=== PATIENT | male | born 1935 | race Caucasian/White ===

== ENCOUNTER 2016-10-29 13:31 | Inpatient (IN) | payer MEDICARE ==
[~2016-10-29] VITALS: Ht 165.1 cm; Wt 75.4 kg
[2016-10-29] MEDS: MEMANTINE 10 MG TABLET. PO SCH ×2 (09:00→21:00)
[~2016-10-29 13:31] MED LIST: ACET325T9 PO; AMIO200T2 PO; ATOR40TA59 PO; DIVA125C PO; ESCITALOPRAM OX10 MG PO; ESOM40CA PO; FURO-69 PO; LEVO88TA4 PO; LISI10TA2 PO; MAG355OR12 PO; MAGN2400 PO; MEMA28CA PO; OLAN5TAB5 PO; OLAN5TAB7 PO; QUET25TA PO; TRAM50TA PO; TRAZ-90 PO
[2016-10-29 14:13] LABS: BASO # 0.1 x10^3/uL (0.0-0.2); BASO % 1 % (0-3); EOS # 0.1 x10^3/uL (0.0-0.7); EOS % 1 % (0-3); HEMATOCRIT 46.1 % (39.0-53.0); HEMOGLOBIN 15.6 g/dL (13.0-17.5); LYMPH # 1.6 x10^3/uL (1.0-4.8); LYMPH % 20 % (24-48); MEAN CORPUSCULAR HEMOGLOBIN 33 pg (25-35); MEAN CORPUSCULAR HGB CONC 34 g/dL (31-37); MEAN CORPUSCULAR VOLUME 97 fL (79-100); MONO % 12 % (0-9); NEUT # 5.2 x10^3uL (1.8-7.7); NEUT % 66 % (31-73); PLATELET COUNT 203 x10^3/uL (140-400); RED BLOOD COUNT 4.73 x10^6/uL (4.30-5.70); RED CELL DISTRIBUTION WIDTH 14.1 % (11.5-14.5); WHITE BLOOD COUNT 7.9 x10^3/uL (4.0-11.0)
[2016-10-29 14:26] LABS: ALBUMIN 3.2 g/dL (3.4-5.0); ALBUMIN/GLOBULIN RATIO 0.7 (1.0-1.7); TOTAL PROTEIN 7.6 g/dL (6.4-8.2)
[2016-10-29 14:27] LABS: CREATININE 1.5 mg/dL (0.7-1.3); GFR 44.7; POTASSIUM 4.7 mmol/L (3.5-5.1); TOTAL BILIRUBIN 0.8 mg/dL (0.2-1.0)
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
[2016-10-29 14:46] LABS: BILIRUBIN,URINE NEG (NEG); CLARITY,URINE CLOUDY; COLOR,URINE AMBER; GLUCOSE,URINE NEG (NEG); NITRITE,URINE NEG (NEG); RBC,URINE TNTC /HPF (0-2); UROBILINOGEN,URINE 2 mg/dL (0.2 mg/dL)
[2016-10-29 14:47] LABS: BACTERIA,URINE 0 /HPF (0-FEW); SQUAMOUS EPITHELIAL CELL,UR OCC /LPF
[2016-10-29 14:49] LABS: VAL ACID 17 mcg/mL (50-100)
--- NOTE | 2016-10-29 15:22 | EKG ---
[address] [address] Test Date: 2016-10-29 Test Time: 14:01:30 Pat Name: MICHELLE CHAMBERLAIN Department: Room: Gender: M Supervisor [employer]: : 1935 Requested By: RHONDA SULLIVAN Order Number: [id number] Reading MD: Serafin Mariano Measurements Intervals [place] Rate: 67 P: TN: QRS: -34 QRSD: 216 T: 146 QT: 502 QTc: 534 Interpretive Statements V-PACED RHYTHM Electronically Signed On 11-07-2016 12:22:58 CDT by Serafin Mariano
[2016-10-29] MEDS ORDERED: GUAI12003 PO (15:30)
[2016-10-29] MEDS ORDERED: BISA10SU2 RC (15:30)
[2016-10-29] MEDS ORDERED: OLAN5TAB5 PO (15:30)
[2016-10-29] MEDS ORDERED: DOCU100C28 PO (15:30)
[2016-10-29 17:53] VITALS: BP 158/82
[2016-10-29] MEDS ORDERED: METHYL SALICYLATE/MENTHOL TOPICAL OINTMENT 29GM TUBE. TP PRN (18:00)
[2016-10-29] MEDS ORDERED: ACETAMINOPHEN 325 MG TABLET PO PRN ×2 (18:00→18:15)
[2016-10-29] MEDS ORDERED: MAG HYDROX/AL HYDROX/SIMETH 30 ML ORAL.SUSP PO PRN (18:00)
[2016-10-29] MEDS ORDERED: NON FORMULARY ITEM (Magnesium Hydroxide (Milk Of Magnesia) 2,400 MG) PO PRN (18:15)
--- NOTE | 2016-10-29 19:54 | PDOC ---
Exam Irving Demential Exam: Irving Note: Please also refer to the separate dictated note~for this date of service dictated separately.~Patient seen individually. Discussed the patient with Nursing staff reviewed the chart.~Reviewed interim history and current functioning. Reviewed vital signs,~Labs/ Radiology~and current medications noted below. Continue current treatment with the changes noted in the dictated addendum note Assessment: Vital Signs: Vital Signs Date Time Temp Pulse Resp B/P (MAP) Pulse Ox O2 Delivery O2 Flow Rate FiO2 10/29/16 17:53 98.4 76 20 158/82 (107) 94 Room Air Labs: Laboratory Tests Test 10/29/16 13:55 10/29/16 14:00 10/29/16 14:15 White Blood Count 7.9 x10^3/uL (4.0-11.0) Red Blood Count 4.73 x10^6/uL (4.30-5.70) Hemoglobin 15.6 g/dL (13.0-17.5) Hematocrit 46.1 % (39.0-53.0) Mean Corpuscular Volume 97 fL (79-100) Mean Corpuscular Hemoglobin 33 pg (25-35) Mean Corpuscular Hemoglobin Concent 34 g/dL (31-37) Red Cell Distribution Width 14.1 % (11.5-14.5) Platelet Count 203 x10^3/uL (140-400) Neutrophils (%) (Auto) 66 % (31-73) Lymphocytes (%) (Auto) 20 % (24-48) L Monocytes (%) (Auto) 12 % (0-9) H Eosinophils (%) (Auto) 1 % (0-3) Basophils (%) (Auto) 1 % (0-3) Neutrophils # (Auto) 5.2 x10^3uL (1.8-7.7) Lymphocytes # (Auto) 1.6 x10^3/uL (1.0-4.8) Monocytes # (Auto) 1.0 x10^3/uL (0.0-1.1) Eosinophils # (Auto) 0.1 x10^3/uL (0.0-0.7) Basophils # (Auto) 0.1 x10^3/uL (0.0-0.2) Sodium Level 144 mmol/L (136-145) Potassium Level 4.7 mmol/L (3.5-5.1) Chloride Level 106 mmol/L (98-107) Carbon Dioxide Level 31 mmol/L (21-32) Anion Gap 7 (6-14) Blood Urea Nitrogen 25 mg/dL (8-26) Creatinine 1.5 mg/dL (0.7-1.3) H Estimated GFR (Cockcroft-Gault) 44.7 BUN/Creatinine Ratio 17 (6-20) Glucose Level 111 mg/dL (70-99) H Calcium Level 9.0 mg/dL (8.5-10.1) Total Bilirubin 0.8 mg/dL (0.2-1.0) Aspartate Amino Transferase (AST) 53 U/L (15-37) H Alanine Aminotransferase (ALT) 22 U/L (16-63) Alkaline Phosphatase 98 U/L (46-116) Total Protein 7.6 g/dL (6.4-8.2) Albumin 3.2 g/dL (3.4-5.0) L Albumin/Globulin Ratio 0.7 (1.0-1.7) L Valproic Acid Level 17 mcg/mL (50-100) L Valproic Acid Last Dose Date 10/29/16 Valproic Acid Last Dose Time 0000 Urine Collection Type Void Urine Color Jeri Urine Clarity Cloudy Urine pH 5.5 Urine Specific [place] 1.025 Urine Protein 30 mg/dl (NEG-TRACE) Urine Glucose (UA) Neg mg/dL (NEG) Urine Ketones (Stick) 15 mg/dL (NEG) Urine Blood Large (NEG) Urine Nitrite Neg (NEG) Urine Bilirubin Neg (NEG) Urine Urobilinogen Dipstick 2 mg/dL (0.2 mg/dL) Urine Leukocyte Esterase Neg (NEG) Urine RBC Tntc /HPF (0-2) Urine WBC 1-4 /HPF (0-4) Urine Squamous Epithelial Cells Occ /LPF Urine Bacteria 0 /HPF (0-FEW) Urine Mucus Slight /LPF Current Medications: Meds: Current Medications Acetaminophen (Tylenol) 650 mg PRN Q6HRS PRN PO PAIN / TEMP; Start 10/29/16 at 18:00 Multi-Ingredient Ointment (Analgesic [place]) 1 jazz PRN QID PRN TP MUSCLE PAIN; Start 10/29/16 at 18:00 Al Hydroxide/Mg Hydroxide (Mylanta Plus Xs) 15 ml PRN AFTMEALHC PRN PO DYSPEPSIA; Start 10/29/16 at 18:00 Magnesium Hydroxide (Milk Of Magnesia) 2,400 mg PRN QHS PRN PO CONSTIPATION; Start 10/29/16 at 18:00 Acetaminophen (Tylenol) 650 mg PRN Q6HRS PRN PO PAIN; Start 10/29/16 at 18:15; Stop 10/29/16 at 18:21; Status DC Amiodarone HCl (Cordarone) 200 mg DAILY PO ; Start 10/30/16 at 09:00 Bisacodyl (Dulcolax Supp) 10 mg PRN DAILY PRN RC CONSTIPATION; Start 10/29/16 at 18:15 Divalproex Sodium (Depakote Sprinkles) 125 mg TID PO ; Start 10/29/16 at 21:00 Docusate Sodium (Colace) 200 mg QHS PO ; Start 10/29/16 at 21:00 Furosemide (Lasix) 40 mg DAILY PO ; Start 10/30/16 at 09:00 Levothyroxine Sodium (Synthroid) 88 mcg DAILYAC PO ; Start 10/30/16 at 07:30 Olanzapine (ZyPREXA ZYDIS) 2.5 mg PRN Q6HRS PRN PO ANXIETY / AGITATION; Start 10/29/16 at 18:15 Olanzapine (ZyPREXA ZYDIS) 5 mg TID PO ; Start 10/29/16 at 21:00 Quetiapine Fumarate (SEROquel) 12.5 mg HS PO ; Start 10/29/16 at 21:00 Trazodone HCl (Desyrel) 50 mg QHS PO ; Start 10/29/16 at 21:00 Atorvastatin Calcium (Lipitor) 40 mg QHS PO ; Start 10/29/16 at 21:00 Escitalopram Oxalate (Lexapro) 15 mg DAILY PO ; Start 10/30/16 at 09:00 Pantoprazole Sodium (Protonix) 40 mg DAILYAC PO ; Start 10/30/16 at 07:30 Guaifenesin (Mucinex Er) 1,200 mg PRN Q12HR PRN PO CHEST CONGESTION; Start 10/29 at 21:00 Non-Formulary Medication 2,400 mg PRN QHS PRN PO CONSTIPATION; Start 10/29/16 at 18:15; Stop 10/29/16 at 18:22; Status DC Memantine (Namenda) 10 mg BID PO ; Start 10/29/16 at 09:00 Active Scripts Active Reported Zyprexa Zydis (Olanzapine) 5 Mg Tab.rapdis 5 Mg PO TID Bisacodyl 10 Mg Supp.rect 10 Mg RC PRN DAILY PRN Mucinex (Guaifenesin) 1,200 Mg Tbmp.12hr 1,200 Mg PO PRN Q12HR PRN Docusate Sodium 100 Mg Capsule 200 Mg PO QHS Zyprexa Zydis (Olanzapine) 5 Mg Tab.rapdis 2.5 Mg PO PRN Q6HRS PRN Escitalopram Oxalate 10 Mg Tablet 15 Mg PO DAILY Quetiapine Fumarate 25 Mg Tablet 12.5 Mg PO HS Milk Of Magnesia (Magnesium Hydroxide) 2,400 Mg/10 Ml Oral.susp 2,400 Mg PO PRN QHS PRN Depakote Sprinkle (Divalproex Sodium) 125 Mg Cap.sprink 125 Mg PO TID Tylenol (Acetaminophen) 325 Mg Tablet 650 Mg PO PRN Q6HRS PRN Nexium Capsule (Esomeprazole Magnesium) 40 Mg Capsule.dr 40 Mg PO DAILY Trazodone Hcl 100 Mg Tablet 50 Mg PO QHS Atorvastatin Calcium 40 Mg Tablet 40 Mg PO QHS Lasix (Furosemide) 20 Mg Tablet 40 Mg PO DAILY Amiodarone Hcl 200 Mg Tablet 200 Mg PO DAILY Levothyroxine Sodium 88 Mcg Tablet 88 Mcg PO DAILYAC Namenda Xr (Memantine Hcl) 28 Mg Cap.spr.24 28 Mg PO DAILY Diagnosis: Problems: (1) Dementia with behavioral disturbance (2) Anxiety disorder (3) Impulse control disorder (4) Dementia in Alzheimer's disease with delusions (5) Dementia in Alzheimer's disease with depression (6) Dementia, vascular, with delusions (7) Dementia, vascular, with depression CAROLA GUILLEN MD Oct 29, 2016 19:54
[2016-10-29] MEDS: DOCUSATE SODIUM 100 MG CAPSULE PO SCH (21:00)
[2016-10-29] MEDS: DIVALPROEX 125 MG CAP.SPRINK PO SCH (21:00)
[2016-10-29] MEDS: QUEtiapine 25 MG TABLET. PO SCH (21:00)
[2016-10-29] MEDS: ATORVASTATIN CALCIUM 20 MG TABLET PO SCH (21:00)
[2016-10-29] MEDS: traZODone 100 MG TABLET. PO SCH (21:00)
--- NOTE | 2016-10-30 01:54 | ACF ---
Admission Criteria Forms PSYCHIATRIC DISORDERS Clinical Indications for Inpatient Care (Place 'X' for any and all applicable criteria): Ongoing inpatient care may be needed for 1 or more of the following(1)(2)(3)(4)( 6)(7)(8): [ ]I. Danger to self or others not manageable at lower level of care. [ ]II. Grave disability (eg, inability to perform self care necessary at lower level of care) [ ]III. Agitation or inappropriate behavior interfering with care for primary condition (eg, attempting to discontinue lines or drains prematurely, unable to cooperate with respiratory care) [x]IV. Severe disability or disorder indicated by ALL of the following: [x]a) Severe behavioral health disorder-related symptoms or condition indicated by 1 or more of the following: [x]i) Severe problem with cognition, memory, judgment, or impulse control [ ]ii) Severe clinical manifestations (eg, hallucinations, delusions, other acute psychotic symptoms, marla, extreme agitation or anxiety) [x]b) Patient management at lower level of care is not feasible until acute intervention or modification is initiated. Extended stay beyond goal length of stay for the primary condition may be needed untilALLof the following are present(1)(2)(3)(4)(722)(23): [ ]a) Danger to self or others is absent or manageable at lower level of care [ ]b) Behavior crisis management, including physical or chemical restraints, is required and is not available at a lower level of care. [ ]c) Behavioral symptoms (e.g., agitation, somnolence, inappropriate behavior) are present, and are not manageable at a lower level of care. [ ]d) Patient cannot understand follow-up treatment and crisis plan. [ ]e) Provider and supports are sufficiently available at lower level of care. [ ]f) Patient can participate (e.g., verify absence of plan for harm) and is in needed of monitoring. The original [facility] [employer] content created by [facility] [employer] has been revised. The portions of the content which have been revised are identified through the use of italic text, and [employer] has neither reviewed nor approved the modified material. All other unmodified content is copyright [facility]. Please see references footnoted in the original [facility] edition 2015 Admission Criteria Met?: Yes WADE CARL Oct 30, 2016 01:54
[2016-10-30 05:52] VITALS: BP 104/58
[2016-10-30 06:46] LABS: VAL ACID 9 mcg/mL (50-100)
[2016-10-30] MEDS: LEVOTHYROXINE 88 MCG TABLET PO SCH (07:42)
[2016-10-30] MEDS: PANTOPRAZOLE 40 MG TABLET. PO SCH (07:45)
[2016-10-30] MEDS: DIVALPROEX 125 MG CAP.SPRINK PO SCH ×2 (09:04→14:01)
[2016-10-30] MEDS: MEMANTINE 10 MG TABLET. PO SCH ×2 (09:04→19:56)
[2016-10-30] MEDS: ESCITALOPRAM 20 MG TABLET. PO SCH (09:05)
[2016-10-30] MEDS: AMIODARONE HCL 200 MG TABLET PO SCH (09:07)
[2016-10-30] MEDS: FUROSEMIDE 20 MG TABLET PO SCH (09:08)
[2016-10-30 15:59] LABS: THYROID STIM HORMONE (TSH) 7.222 uIU/mL (0.358-3.740)
[2016-10-30 16:22] VITALS: BP 144/84
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
[2016-10-30] MEDS ORDERED: DEXTROSE 50% 25 GM / 50ML DISP.SYRIN. IV PRN (19:15)
--- NOTE | 2016-10-30 19:42 | PDOC ---
Exam Irving Demential Exam: Irving Note: Please also refer to the separate dictated note~for this date of service dictated separately.~Patient seen individually. Discussed the patient with Nursing staff reviewed the chart.~Reviewed interim history and current functioning. Reviewed vital signs,~Labs/ Radiology~and current medications noted below. Continue current treatment with the changes noted in the dictated addendum note Assessment: Vital Signs: Vital Signs Date Time Temp Pulse Resp B/P (MAP) Pulse Ox O2 Delivery O2 Flow Rate FiO2 10/30/16 16:22 97.2 75 18 144/84 (104) 96 10/30/16 05:52 Room Air I&O Intake and Output 10/30/16 07:00 # Voids 1 Labs: Laboratory Tests Test 10/30/16 06:11 10/30/16 18:55 Magnesium Level 2.3 mg/dL (1.8-2.4) Iron Level 48 ug/dL (65-175) L Total Iron Binding Capacity 247 ug/dL (250-450) L Iron Saturation 19 % (15-34) Triglycerides Level 93 mg/dL (0-150) Cholesterol Level 204 mg/dL (0-200) H LDL Cholesterol, Calculated 148 mg/dL (0-100) H VLDL Cholesterol, Calculated 18 mg/dL (0-40) Non-HDL Cholesterol Calculated 166 mg/dL (0-129) H HDL Cholesterol 38 mg/dL (40-60) L Cholesterol/HDL Ratio 5.0 Vitamin B12 Level 500 pg/mL (247-911) Thyroid Stimulating Hormone (TSH) 7.222 uIU/mL (0.358-3.740) Valproic Acid Level 9 mcg/mL (50-100) L Valproic Acid Last Dose Date 10/29/2016 Valproic Acid Last Dose Time 2100 Glucose (Fingerstick) 261 mg/dL (70-99) H Current Medications: Meds: Current Medications Acetaminophen (Tylenol) 650 mg PRN Q6HRS PRN PO PAIN / TEMP; Start 10/29/16 at 18:00 Multi-Ingredient Ointment (Analgesic [place]) 1 jazz PRN QID PRN TP MUSCLE PAIN; Start 10/29/16 at 18:00 Al Hydroxide/Mg Hydroxide (Mylanta Plus Xs) 15 ml PRN AFTMEALHC PRN PO DYSPEPSIA; Start 10/29/16 at 18:00 Magnesium Hydroxide (Milk Of Magnesia) 2,400 mg PRN QHS PRN PO CONSTIPATION; Start 10/29/16 at 18:00 Acetaminophen (Tylenol) 650 mg PRN Q6HRS PRN PO PAIN; Start 10/29/16 at 18:15; Stop 10/29/16 at 18:21; Status DC Amiodarone HCl (Cordarone) 200 mg DAILY PO Last administered on 10/30/16 09:07 ; Start 10/30/16 at 09:00 Bisacodyl (Dulcolax Supp) 10 mg PRN DAILY PRN RC CONSTIPATION; Start 10/29/16 at 18:15 Divalproex Sodium (Depakote Sprinkles) 125 mg TID PO Last administered on 14:01; Start 10/29/16 at 21:00; Stop 10/30/16 at 18:06; Status DC Docusate Sodium (Colace) 200 mg QHS PO ; Start 10/29/16 at 21:00 Furosemide (Lasix) 40 mg DAILY PO Last administered on 10/30/16 09:08; Start at 09:00 Levothyroxine Sodium (Synthroid) 88 mcg DAILYAC PO Last administered on 07:42; Start 10/30/16 at 07:30 Olanzapine (ZyPREXA ZYDIS) 2.5 mg PRN Q6HRS PRN PO ANXIETY / AGITATION; Start 10/29/16 at 18:15 Olanzapine (ZyPREXA ZYDIS) 5 mg TID PO Last administered on 10/30/16 14:02; Start 10/29/16 at 21:00 Quetiapine Fumarate (SEROquel) 12.5 mg HS PO ; Start 10/29/16 at 21:00 Trazodone HCl (Desyrel) 50 mg QHS PO ; Start 10/29/16 at 21:00 Atorvastatin Calcium (Lipitor) 40 mg QHS PO ; Start 10/29/16 at 21:00 Escitalopram Oxalate (Lexapro) 15 mg DAILY PO Last administered on 10/30/16 09: 05; Start 10/30/16 at 09:00 Pantoprazole Sodium (Protonix) 40 mg DAILYAC PO Last administered on 10/30/16 07:45; Start 10/30/16 at 07:30 Guaifenesin (Mucinex Er) 1,200 mg PRN Q12HR PRN PO CHEST CONGESTION; Start 10/29 at 21:00 Non-Formulary Medication 2,400 mg PRN QHS PRN PO CONSTIPATION; Start 10/29/16 at 18:15; Stop 10/29/16 at 18:22; Status DC Memantine (Namenda) 10 mg BID PO Last administered on 10/30/16t 09:04; Start 10/29/16 at 09:00 Divalproex Sodium (Depakote Sprinkles) 250 mg BID92 PO ; Start 10/31/16 at 09:00 Insulin Detemir (Levemir) 6 units QHS SQ ; Start 10/30/16 at 21:00 Insulin Aspart (NovoLOG) 0-5 UNITS TIDBFRMEAL SQ ; Start 10/31/16 at 07:30 Dextrose 12.5 gm PRN Q15MIN PRN IV SEE COMMENTS; Start 10/30/16 at 19:15 Active Scripts Active Reported Zyprexa Zydis (Olanzapine) 5 Mg Tab.rapdis 5 Mg PO TID Bisacodyl 10 Mg Supp.rect 10 Mg RC PRN DAILY PRN Mucinex (Guaifenesin) 1,200 Mg Tbmp.12hr 1,200 Mg PO PRN Q12HR PRN Docusate Sodium 100 Mg Capsule 200 Mg PO QHS Zyprexa Zydis (Olanzapine) 5 Mg Tab.rapdis 2.5 Mg PO PRN Q6HRS PRN Escitalopram Oxalate 10 Mg Tablet 15 Mg PO DAILY Quetiapine Fumarate 25 Mg Tablet 12.5 Mg PO HS Milk Of Magnesia (Magnesium Hydroxide) 2,400 Mg/10 Ml Oral.susp 2,400 Mg PO PRN QHS PRN Depakote Sprinkle (Divalproex Sodium) 125 Mg Cap.sprink 125 Mg PO TID Tylenol (Acetaminophen) 325 Mg Tablet 650 Mg PO PRN Q6HRS PRN Nexium Capsule (Esomeprazole Magnesium) 40 Mg Capsule.dr 40 Mg PO DAILY Trazodone Hcl 100 Mg Tablet 50 Mg PO QHS Atorvastatin Calcium 40 Mg Tablet 40 Mg PO QHS Lasix (Furosemide) 20 Mg Tablet 40 Mg PO DAILY Amiodarone Hcl 200 Mg Tablet 200 Mg PO DAILY Levothyroxine Sodium 88 Mcg Tablet 88 Mcg PO DAILYAC Namenda Xr (Memantine Hcl) 28 Mg Cap.spr.24 28 Mg PO DAILY Diagnosis: Problems: (1) Dementia with behavioral disturbance (2) Anxiety disorder (3) Impulse control disorder (4) Dementia in Alzheimer's disease with delusions (5) Dementia in Alzheimer's disease with depression (6) Dementia, vascular, with delusions (7) Dementia, vascular, with depression CAROLA GUILLEN MD Oct 30, 2016 19:42
[2016-10-30] MEDS: ATORVASTATIN CALCIUM 20 MG TABLET PO SCH (19:56)
[2016-10-30] MEDS: traZODone 100 MG TABLET. PO SCH (19:56)
[2016-10-30] MEDS: DOCUSATE SODIUM 100 MG CAPSULE PO SCH (19:56)
[2016-10-30] MEDS: QUEtiapine 25 MG TABLET. PO SCH (19:57)
[2016-10-30 20:08] LABS: THYROXINE 10.2 ug/dL (4.5-12.0)
[2016-10-30] MEDS: INSULIN DETEMIR 300 UNITS/3 ML INSULN.PEN. SQ SCH (21:21)
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
[2016-10-31 05:45] VITALS: BP 110/52
[2016-10-31] MEDS: INSULIN ASPART 300 UNITS/3 ML INSULN.PEN SQ SCH ×3 (07:30→16:58)
[2016-10-31] MEDS: LEVOTHYROXINE 88 MCG TABLET PO SCH (07:38)
[2016-10-31] MEDS: PANTOPRAZOLE 40 MG TABLET. PO SCH (07:38)
[2016-10-31] MEDS: AMIODARONE HCL 200 MG TABLET PO SCH (09:00)
[2016-10-31] MEDS: ESCITALOPRAM 20 MG TABLET. PO SCH (10:24)
[2016-10-31] MEDS: MEMANTINE 10 MG TABLET. PO SCH ×2 (10:24→20:36)
[2016-10-31] MEDS: FUROSEMIDE 20 MG TABLET PO SCH (10:28)
[2016-10-31] MEDS: DIVALPROEX 125 MG CAP.SPRINK PO SCH ×2 (10:29→13:08)
[2016-10-31 15:54] VITALS: BP 108/72
[2016-10-31] MEDS ORDERED: ACETAMINOPHEN 325 MG TABLET PO PRN (17:37)
--- NOTE | 2016-10-31 19:49 | PDOC ---
Exam Irving Demential Exam: Irving Note: Please also refer to the separate dictated note~for this date of service dictated separately.~Patient seen individually. Discussed the patient with Nursing staff reviewed the chart.~Reviewed interim history and current functioning. Reviewed vital signs,~Labs/ Radiology~and current medications noted below. Continue current treatment with the changes noted in the dictated addendum note Assessment: Vital Signs: Vital Signs Date Time Temp Pulse Resp B/P (MAP) Pulse Ox O2 Delivery O2 Flow Rate FiO2 10/31/16 15:54 97.5 86 20 108/72 (84) 91 10/30/16 05:52 Room Air I&O Intake and Output 10/31/16 07:00 Intake Total 870 ml Balance 870 ml Intake Oral 870 ml # Voids 2 Labs: Laboratory Tests Test 10/31/16 07:04 10/31/16 11:12 10/31/16 16:50 10/31/16 19:40 Glucose (Fingerstick) 104 mg/dL (70-99) H 125 mg/dL (70-99) H 197 mg/dL (70-99) H 150 mg/dL (70-99) H Current Medications: Meds: Current Medications Acetaminophen (Tylenol) 650 mg PRN Q6HRS PRN PO PAIN / TEMP; Start 10/29/16 at 18:00; Stop 10/31/16 at 17:37; Status DC Multi-Ingredient Ointment (Analgesic [place]) 1 jazz PRN QID PRN TP MUSCLE PAIN; Start 10/29/16 at 18:00 Al Hydroxide/Mg Hydroxide (Mylanta Plus Xs) 15 ml PRN AFTMEALHC PRN PO DYSPEPSIA; Start 10/29/16 at 18:00 Magnesium Hydroxide (Milk Of Magnesia) 2,400 mg PRN QHS PRN PO CONSTIPATION; Start 10/29/16 at 18:00 Acetaminophen (Tylenol) 650 mg PRN Q6HRS PRN PO PAIN; Start 10/29/16 at 18:15; Stop 10/29/16 at 18:21; Status DC Amiodarone HCl (Cordarone) 200 mg DAILY PO Last administered on 10/30/16t 09:07 ; Start 10/30/16 at 09:00 Bisacodyl (Dulcolax Supp) 10 mg PRN DAILY PRN RC CONSTIPATION; Start 10/29/16 at 18:15 Divalproex Sodium (Depakote Sprinkles) 125 mg TID PO Last administered on 14:01; Start 10/29/16 at 21:00; Stop 10/30/16 at 18:06; Status DC Docusate Sodium (Colace) 200 mg QHS PO Last administered on 10/30/16 19:56; Start 10/29/16 at 21:00 Furosemide (Lasix) 40 mg DAILY PO Last administered on 10/31/16 10:28; Start at 09:00 Levothyroxine Sodium (Synthroid) 88 mcg DAILYAC PO Last administered on 07:38; Start 10/30/16 at 07:30 Olanzapine (ZyPREXA ZYDIS) 2.5 mg PRN Q6HRS PRN PO ANXIETY / AGITATION; Start 10/29/16 at 18:15 Olanzapine (ZyPREXA ZYDIS) 5 mg TID PO Last administered on 10/31/16 13:09; Start 10/29/16 at 21:00 Quetiapine Fumarate (SEROquel) 12.5 mg HS PO Last administered on 10/30/16 19: 57; Start 10/29/16 at 21:00 Trazodone HCl (Desyrel) 50 mg QHS PO Last administered on 10/30/16 19:56; Start 10/29/16 at 21:00 Atorvastatin Calcium (Lipitor) 40 mg QHS PO Last administered on 10/30/16 19:56 ; Start 10/29/16 at 21:00 Escitalopram Oxalate (Lexapro) 15 mg DAILY PO Last administered on 10/31/16 10: 24; Start 10/30/16 at 09:00 Pantoprazole Sodium (Protonix) 40 mg DAILYAC PO Last administered on 10/31/16 07:38; Start 10/30/16 at 07:30 Guaifenesin (Mucinex Er) 1,200 mg PRN Q12HR PRN PO CHEST CONGESTION; Start 10/29 at 21:00 Non-Formulary Medication 2,400 mg PRN QHS PRN PO CONSTIPATION; Start 10/29/16 at 18:15; Stop 8/1/17 at 18:22; Status DC Memantine (Namenda) 10 mg BID PO Last administered on 10/31/16 10:24; Start 10/29/16 at 09:00 Divalproex Sodium (Depakote Sprinkles) 250 mg BID92 PO Last administered on 10/31 13:08; Start 10/31/16 at 09:00 Insulin Detemir (Levemir) 6 units QHS SQ Last administered on 10/30/16 21:21; Start 10/30/16 at 21:00 Insulin Aspart (NovoLOG) 0-5 UNITS TIDBFRMEAL SQ Last administered on 10/31/16 16:58; Start 10/31/16 at 07:30 Dextrose 12.5 gm PRN Q15MIN PRN IV SEE COMMENTS; Start 10/30/16 at 19:15 Acetaminophen (Tylenol) 650 mg PRN Q6HRS PRN PO PAIN / TEMP; Start 10/31/16 at 17:37 Active Scripts Active Reported Zyprexa Zydis (Olanzapine) 5 Mg Tab.rapdis 5 Mg PO TID Bisacodyl 10 Mg Supp.rect 10 Mg RC PRN DAILY PRN Mucinex (Guaifenesin) 1,200 Mg Tbmp.12hr 1,200 Mg PO PRN Q12HR PRN Docusate Sodium 100 Mg Capsule 200 Mg PO QHS Zyprexa Zydis (Olanzapine) 5 Mg Tab.rapdis 2.5 Mg PO PRN Q6HRS PRN Escitalopram Oxalate 10 Mg Tablet 15 Mg PO DAILY Quetiapine Fumarate 25 Mg Tablet 12.5 Mg PO HS Milk Of Magnesia (Magnesium Hydroxide) 2,400 Mg/10 Ml Oral.susp 2,400 Mg PO PRN QHS PRN Depakote Sprinkle (Divalproex Sodium) 125 Mg Cap.sprink 125 Mg PO TID Tylenol (Acetaminophen) 325 Mg Tablet 650 Mg PO PRN Q6HRS PRN Nexium Capsule (Esomeprazole Magnesium) 40 Mg Capsule.dr 40 Mg PO DAILY Trazodone Hcl 100 Mg Tablet 50 Mg PO QHS Atorvastatin Calcium 40 Mg Tablet 40 Mg PO QHS Lasix (Furosemide) 20 Mg Tablet 40 Mg PO DAILY Amiodarone Hcl 200 Mg Tablet 200 Mg PO DAILY Levothyroxine Sodium 88 Mcg Tablet 88 Mcg PO DAILYAC Namenda Xr (Memantine Hcl) 28 Mg Cap.spr.24 28 Mg PO DAILY Diagnosis: Problems: (1) Dementia with behavioral disturbance (2) Anxiety disorder (3) Impulse control disorder (4) Dementia in Alzheimer's disease with delusions (5) Dementia in Alzheimer's disease with depression (6) Dementia, vascular, with delusions (7) Dementia, vascular, with depression CAROLA GUILLEN MD Oct 31, 2016 19:49
[2016-10-31] MEDS: ATORVASTATIN CALCIUM 20 MG TABLET PO SCH (20:36)
[2016-10-31] MEDS: traZODone 100 MG TABLET. PO SCH (20:36)
[2016-10-31] MEDS: QUEtiapine 25 MG TABLET. PO SCH (20:36)
[2016-10-31] MEDS: DOCUSATE SODIUM 100 MG CAPSULE PO SCH (20:37)
[2016-10-31] MEDS: INSULIN DETEMIR 300 UNITS/3 ML INSULN.PEN. SQ SCH (20:52)
--- NOTE | 2016-10-31 22:17 | PN ---
DATE: 10/30/2016 This is a late entry, covers the elements not covered in my initial note of 10/30/2016 SUBJECTIVE: I met with the patient in the evening of 10/30/2016. The patient remains somewhat sedated at times, takes his medications crushed, slept in the wheelchair, has a melanoma, right shoulder, and I will defer to Dr. Mcgill to address with the family. TSH elevated at 7.2. Apparently, he was on Synthroid in the past. We will defer to Dr. Mcgill again. REVIEW OF SYSTEMS: Ambulation impaired. No CV, , pulmonary, eye, ENT system symptoms on review. Reliability poor. MENTAL STATUS EXAM: Oriented to himself. Insight, judgment, recent and remote memory, attention, concentration, fund of knowledge poor, consistent with his diagnosis as mentioned in my initial note. IMPRESSION: Major neurocognitive disorder, Alzheimer vascular with depression, confusion, behavioral disturbance; anxiety disorder, unspecified; impulse control disorder, unspecified. Rest unchanged. PLAN: 1. Depakote is 125 mg 3 times a day, level is 9; we will increase the Depakote to 250 mg twice a day, 9. 2. Check labs, CBC, CMP, valproic acid level, adjust further as clinically indicated. Defer medical management to Dr. Mcgill. MAN Michelle GUILLEN MD DR: OTF/shad JOB#: [id number] / [id number]
[2016-11-01 06:00] VITALS: BP 117/71
[2016-11-01] MEDS: INSULIN ASPART 300 UNITS/3 ML INSULN.PEN SQ SCH ×3 (07:30→16:30)
[2016-11-01] MEDS: LEVOTHYROXINE 88 MCG TABLET PO SCH (07:33)
[2016-11-01] MEDS: PANTOPRAZOLE 40 MG TABLET. PO SCH (07:33)
[2016-11-01] MEDS: AMIODARONE HCL 200 MG TABLET PO SCH (08:59)
[2016-11-01] MEDS: ESCITALOPRAM 20 MG TABLET. PO SCH (09:00)
[2016-11-01] MEDS: DIVALPROEX 125 MG CAP.SPRINK PO SCH ×2 (09:00→13:26)
[2016-11-01] MEDS: MEMANTINE 10 MG TABLET. PO SCH ×2 (09:00→20:00)
[2016-11-01] MEDS: FUROSEMIDE 20 MG TABLET PO SCH (09:00)
[2016-11-01 16:21] VITALS: BP 108/70
[2016-11-01] MEDS: QUEtiapine 25 MG TABLET. PO SCH (19:58)
[2016-11-01] MEDS: DOCUSATE SODIUM 100 MG CAPSULE PO SCH (19:59)
[2016-11-01] MEDS: ATORVASTATIN CALCIUM 20 MG TABLET PO SCH (20:00)
[2016-11-01] MEDS: traZODone 100 MG TABLET. PO SCH (20:00)
[2016-11-01] MEDS: INSULIN DETEMIR 300 UNITS/3 ML INSULN.PEN. SQ SCH (20:03)
--- NOTE | 2016-11-01 20:04 | PDOC ---
Exam Irving Demential Exam: Irving Note: Please also refer to the separate dictated note~for this date of service dictated separately.~Patient seen individually. Discussed the patient with Nursing staff reviewed the chart.~Reviewed interim history and current functioning. Reviewed vital signs,~Labs/ Radiology~and current medications noted below. Continue current treatment with the changes noted in the dictated addendum note Assessment: Vital Signs: Vital Signs Date Time Temp Pulse Resp B/P (MAP) Pulse Ox O2 Delivery O2 Flow Rate FiO2 11/01/16 16:21 97.8 75 22 108/70 (83) 11/01/16 06:00 98 10/30/16 05:52 Room Air I&O Intake and Output 11/01/16 07:00 Intake Total 480 ml Balance 480 ml Intake Oral 480 ml # Voids 2 Labs: Laboratory Tests Test 10/31/16 20:49 11/01/16 06:05 11/01/16 07:38 11/01/16 11:42 Glucose (Fingerstick) 120 mg/dL (70-99) H 92 mg/dL (70-99) 89 mg/dL (70-99) Free Thyroxine 1.21 ng/dL (0.76-1.46) Thyroxine (T4) 8.7 ug/dL (4.5-12.0) Free Triiodothyronine (T3) pg/mL 1.24 pg/mL (2.18-3.98) L Test 11/01/16 17:13 11/01/16 19:11 Glucose (Fingerstick) 150 mg/dL (70-99) H 163 mg/dL (70-99) H Current Medications: Meds: Current Medications Acetaminophen (Tylenol) 650 mg PRN Q6HRS PRN PO PAIN / TEMP; Start 10/29/16 at 18:00; Stop 10/31/16 at 17:37; Status DC Multi-Ingredient Ointment (Analgesic [place]) 1 jazz PRN QID PRN TP MUSCLE PAIN; Start 10/29/16 at 18:00 Al Hydroxide/Mg Hydroxide (Mylanta Plus Xs) 15 ml PRN AFTMEALHC PRN PO DYSPEPSIA; Start 10/29/16 at 18:00 Magnesium Hydroxide (Milk Of Magnesia) 2,400 mg PRN QHS PRN PO CONSTIPATION; Start 10/29/16 at 18:00 Acetaminophen (Tylenol) 650 mg PRN Q6HRS PRN PO PAIN; Start 10/29/16 at 18:15; Stop 10/29/16 at 18:21; Status DC Amiodarone HCl (Cordarone) 200 mg DAILY PO Last administered on 10/30/16 09:07 ; Start 10/30/16 at 09:00 Bisacodyl (Dulcolax Supp) 10 mg PRN DAILY PRN RC CONSTIPATION; Start 10/29/16 at 18:15 Divalproex Sodium (Depakote Sprinkles) 125 mg TID PO Last administered on 14:01; Start 10/29/16 at 21:00; Stop 10/30/16 at 18:06; Status DC Docusate Sodium (Colace) 200 mg QHS PO Last administered on 10/31/16 20:37; Start 10/29/16 at 21:00 Furosemide (Lasix) 40 mg DAILY PO Last administered on 10/31/16 10:28; Start at 09:00 Levothyroxine Sodium (Synthroid) 88 mcg DAILYAC PO Last administered on 07:33; Start 10/30/16 at 07:30 Olanzapine (ZyPREXA ZYDIS) 2.5 mg PRN Q6HRS PRN PO ANXIETY / AGITATION; Start 10/29/16 at 18:15 Olanzapine (ZyPREXA ZYDIS) 5 mg TID PO Last administered on 10/31/16 20:37; Start 10/29/16 at 21:00 Quetiapine Fumarate (SEROquel) 12.5 mg HS PO Last administered on 10/31/16 20: 36; Start 10/29/16 at 21:00 Trazodone HCl (Desyrel) 50 mg QHS PO Last administered on 10/31/16 20:36; Start 10/29/16 at 21:00 Atorvastatin Calcium (Lipitor) 40 mg QHS PO Last administered on 10/31/16 20:36 ; Start 10/29/16 at 21:00 Escitalopram Oxalate (Lexapro) 15 mg DAILY PO Last administered on 10/31/16 10: 24; Start 10/30/16 at 09:00 Pantoprazole Sodium (Protonix) 40 mg DAILYAC PO Last administered on 11/01/16 07:33; Start 10/30/16 at 07:30 Guaifenesin (Mucinex Er) 1,200 mg PRN Q12HR PRN PO CHEST CONGESTION; Start 10/29 at 21:00 Non-Formulary Medication 2,400 mg PRN QHS PRN PO CONSTIPATION; Start 10/29/16 at 18:15; Stop 10/29/16 at 18:22; Status DC Memantine (Namenda) 10 mg BID PO Last administered on 10/31/16 20:36; Start 10/29/16 at 09:00 Divalproex Sodium (Depakote Sprinkles) 250 mg BID92 PO Last administered on 10/31 13:08; Start 10/31/16 at 09:00; Stop 11/01/16 at 18:26; Status DC Insulin Detemir (Levemir) 6 units QHS SQ Last administered on 10/31/16 20:52; Start 10/30/16 at 21:00 Insulin Aspart (NovoLOG) 0-5 UNITS TIDBFRMEAL SQ Last administered on 10/31/16 16:58; Start 10/31/16 at 07:30 Dextrose 12.5 gm PRN Q15MIN PRN IV SEE COMMENTS; Start 10/30/16 at 19:15 Acetaminophen (Tylenol) 650 mg PRN Q6HRS PRN PO PAIN / TEMP; Start 10/31/16 at 17:37 Buspirone HCl (Buspar) 5 mg BID92 PO ; Start 11/02/16 at 09:00 Active Scripts Active Reported Zyprexa Zydis (Olanzapine) 5 Mg Tab.rapdis 5 Mg PO TID Bisacodyl 10 Mg Supp.rect 10 Mg RC PRN DAILY PRN Mucinex (Guaifenesin) 1,200 Mg Tbmp.12hr 1,200 Mg PO PRN Q12HR PRN Docusate Sodium 100 Mg Capsule 200 Mg PO QHS Zyprexa Zydis (Olanzapine) 5 Mg Tab.rapdis 2.5 Mg PO PRN Q6HRS PRN Escitalopram Oxalate 10 Mg Tablet 15 Mg PO DAILY Quetiapine Fumarate 25 Mg Tablet 12.5 Mg PO HS Milk Of Magnesia (Magnesium Hydroxide) 2,400 Mg/10 Ml Oral.susp 2,400 Mg PO PRN QHS PRN Depakote Sprinkle (Divalproex Sodium) 125 Mg Cap.sprink 125 Mg PO TID Tylenol (Acetaminophen) 325 Mg Tablet 650 Mg PO PRN Q6HRS PRN Nexium Capsule (Esomeprazole Magnesium) 40 Mg Capsule.dr 40 Mg PO DAILY Trazodone Hcl 100 Mg Tablet 50 Mg PO QHS Atorvastatin Calcium 40 Mg Tablet 40 Mg PO QHS Lasix (Furosemide) 20 Mg Tablet 40 Mg PO DAILY Amiodarone Hcl 200 Mg Tablet 200 Mg PO DAILY Levothyroxine Sodium 88 Mcg Tablet 88 Mcg PO DAILYAC Namenda Xr (Memantine Hcl) 28 Mg Cap.spr.24 28 Mg PO DAILY Diagnosis: Problems: (1) Dementia with behavioral disturbance (2) Anxiety disorder (3) Impulse control disorder (4) Dementia in Alzheimer's disease with delusions (5) Dementia in Alzheimer's disease with depression (6) Dementia, vascular, with delusions (7) Dementia, vascular, with depression CAROLA GUILLEN MD Nov 01, 2016 20:04
--- NOTE | 2016-11-01 22:46 | PN ---
DATE: 10/31/2016 This is a late entry, 10/31/2016, and covers elements not covered in my initial note. SUBJECTIVE: The patient was staffed at a treatment team meeting with the entire team morning of 10/31/2016. The patient's son, Carlos attended this conference. I met with him individually evening of 10/31/2016. Sleeping about 9-1/2 hours. Appetite 75%, remains confused. Morning of 10/31/2016, he was somewhat tired, swinging at staff in the morning, irritable, labile, at times redirected, takes his meds and ice cream. REVIEW OF SYSTEMS: No CV, , pulmonary, eye, ENT system symptoms on review. Reliability poor. MENTAL STATUS EXAM: Oriented to himself. Insight, judgment, recent and remote memory, attention, concentration, fund of knowledge poor, consistent with his diagnosis mentioned in my initial note. IMPRESSION: Major neurocognitive disorder, Alzheimer, vascular with depression, delusion and behavioral disturbance, anxiety disorder unspecified, and impulse control disorder unspecified. PLAN: The patient's TSH is elevated, we will defer to Dr. Mcgill. Continue psychotropics mentioned in my initial note. I have reviewed the drug interactions carefully. Risk/benefit ratio favors no change for now and we will reassess depending on his progress over the next day or so. Depakote has been adjusted. Check labs level and reach a therapeutic level. MAN Michelle GUILLEN MD DR: OTF/shad JOB#: [id number] / [id number]
[2016-11-02 06:24] VITALS: BP 113/63
[2016-11-02] MEDS: INSULIN ASPART 300 UNITS/3 ML INSULN.PEN SQ SCH ×3 (07:30→16:30)
[2016-11-02] MEDS: MEMANTINE 10 MG TABLET. PO SCH ×2 (08:36→19:42)
[2016-11-02] MEDS: FUROSEMIDE 20 MG TABLET PO SCH (08:36)
[2016-11-02] MEDS: PANTOPRAZOLE 40 MG TABLET. PO SCH (08:36)
[2016-11-02] MEDS: LEVOTHYROXINE 88 MCG TABLET PO SCH (08:36)
[2016-11-02] MEDS: AMIODARONE HCL 200 MG TABLET PO SCH (08:36)
[2016-11-02] MEDS: ESCITALOPRAM 20 MG TABLET. PO SCH (08:37)
[2016-11-02] MEDS: busPIRone 5 MG TABLET. PO SCH ×2 (08:40→14:00)
[2016-11-02 16:31] VITALS: BP 120/73
[2016-11-02] MEDS: traZODone 100 MG TABLET. PO SCH (19:42)
[2016-11-02] MEDS: DOCUSATE SODIUM 100 MG CAPSULE PO SCH (19:42)
[2016-11-02] MEDS: ATORVASTATIN CALCIUM 20 MG TABLET PO SCH (19:42)
[2016-11-02] MEDS: QUEtiapine 25 MG TABLET. PO SCH (19:43)
[2016-11-02] MEDS: INSULIN DETEMIR 300 UNITS/3 ML INSULN.PEN. SQ SCH (19:49)
--- NOTE | 2016-11-02 21:00 | PN ---
DATE: 11/01/2016 This is a late entry for 11/01/2016 and covers elements not covered in my initial note of 11/01/2016. SUBJECTIVE: The patient was seen individually evening of 11/01/2016. The patient had nothing for breakfast and lunch, had boost, was cheeking his food, somewhat drowsy and when he is awake, he was combative. Per nursing staff, there is "no middle ground." He gets tens, . REVIEW OF SYSTEMS: Ambulation impaired, in a wheelchair. No CV, , pulmonary, eye, ENT system symptoms on review. MENTAL STATUS EXAM: Oriented to himself. Insight, judgment, recent and remote memory, attention, concentration, fund of knowledge poor, consistent with his diagnosis mentioned in my initial note. PLAN: I wonder if the Depakote could be worsening his mood lability, on a trial basis we will stop it. We will start BuSpar 5 mg at 9:00 a.m. and 2 p.m. for his anxiety. Continue Lexapro 10 mg a day, trazodone 50 mg at bedtime, Namenda XR 28 mg daily, Seroquel 12.5 mg at bedtime, Zyprexa p.r.n. and scheduled Zyprexa 5 mg t.i.d. He is on 2 atypical antipsychotics and we will have to gradually assess how we can change it back to just single agent. CAROLA GUILLEN MD DR: OTF/shad JOB#: [id number] / [id number]
--- NOTE | 2016-11-02 22:21 | PDOC ---
Exam Irving Demential Exam: Irving Note: Please also refer to the separate dictated note~for this date of service dictated separately.~Patient seen individually. Discussed the patient with Nursing staff reviewed the chart.~Reviewed interim history and current functioning. Reviewed vital signs,~Labs/ Radiology~and current medications noted below. Continue current treatment with the changes noted in the dictated addendum note Assessment: Vital Signs: Vital Signs Date Time Temp Pulse Resp B/P (MAP) Pulse Ox O2 Delivery O2 Flow Rate FiO2 11/02/16 16:31 97.4 62 18 120/73 (89) 97 10/30/16 05:52 Room Air I&O Intake and Output 11/02/16 07:00 Intake Total 840 ml Balance 840 ml Intake Oral 840 ml Labs: Laboratory Tests Test 11/02/16 07:30 11/02/16 11:50 11/02/16 16:45 11/02/16 19:16 Glucose (Fingerstick) 85 mg/dL (70-99) 143 mg/dL (70-99) H 79 mg/dL (70-99) 138 mg/dL (70-99) H Current Medications: Meds: Current Medications Acetaminophen (Tylenol) 650 mg PRN Q6HRS PRN PO PAIN / TEMP; Start 10/29/16 at 18:00; Stop 10/31/16 at 17:37; Status DC Multi-Ingredient Ointment (Analgesic [place]) 1 jazz PRN QID PRN TP MUSCLE PAIN; Start 10/29/16 at 18:00 Al Hydroxide/Mg Hydroxide (Mylanta Plus Xs) 15 ml PRN AFTMEALHC PRN PO DYSPEPSIA; Start 10/29/16 at 18:00 Magnesium Hydroxide (Milk Of Magnesia) 2,400 mg PRN QHS PRN PO CONSTIPATION; Start 10/29/16 at 18:00 Acetaminophen (Tylenol) 650 mg PRN Q6HRS PRN PO PAIN; Start 10/29/16 at 18:15; Stop 10/29/16 at 18:21; Status DC Amiodarone HCl (Cordarone) 200 mg DAILY PO Last administered on 11/02/16t 08:36 ; Start 10/30/16 at 09:00 Bisacodyl (Dulcolax Supp) 10 mg PRN DAILY PRN RC CONSTIPATION; Start 10/29/16 at 18:15 Divalproex Sodium (Depakote Sprinkles) 125 mg TID PO Last administered on 14:01; Start 10/29/16 at 21:00; Stop 10/30/16 at 18:06; Status DC Docusate Sodium (Colace) 200 mg QHS PO Last administered on 11/02/16 19:42; Start 10/29/16 at 21:00 Furosemide (Lasix) 40 mg DAILY PO Last administered on 11/02/16 08:36; Start at 09:00 Levothyroxine Sodium (Synthroid) 88 mcg DAILYAC PO Last administered on 08:36; Start 10/30/16 at 07:30 Olanzapine (ZyPREXA ZYDIS) 2.5 mg PRN Q6HRS PRN PO ANXIETY / AGITATION; Start 10/29/16 at 18:15 Olanzapine (ZyPREXA ZYDIS) 5 mg TID PO Last administered on 11/02/16 19:42; Start 10/29/16 at 21:00 Quetiapine Fumarate (SEROquel) 12.5 mg HS PO Last administered on 11/02/16 19: 43; Start 10/29/16 at 21:00 Trazodone HCl (Desyrel) 50 mg QHS PO Last administered on 11/02/16 19:42; Start 10/29/16 at 21:00 Atorvastatin Calcium (Lipitor) 40 mg QHS PO Last administered on 11/02/16 19:42 ; Start 10/29/16 at 21:00 Escitalopram Oxalate (Lexapro) 15 mg DAILY PO Last administered on 11/02/16 08: 37; Start 10/30/16 at 09:00 Pantoprazole Sodium (Protonix) 40 mg DAILYAC PO Last administered on 11/02/16 08:36; Start 10/30/16 at 07:30 Guaifenesin (Mucinex Er) 1,200 mg PRN Q12HR PRN PO CHEST CONGESTION; Start 10/29 at 21:00 Non-Formulary Medication 2,400 mg PRN QHS PRN PO CONSTIPATION; Start 10/29/16 at 18:15; Stop 10/29/16 at 18:22; Status DC Memantine (Namenda) 10 mg BID PO Last administered on 11/02/16 19:42; Start 10/29/16 at 09:00 Divalproex Sodium (Depakote Sprinkles) 250 mg BID92 PO Last administered on 10/31 13:08; Start 10/31/16 at 09:00; Stop 11/01/16 at 18:26; Status DC Insulin Detemir (Levemir) 6 units QHS SQ Last administered on 11/02/16 19:49; Start 10/30/16 at 21:00 Insulin Aspart (NovoLOG) 0-5 UNITS TIDBFRMEAL SQ Last administered on 10/31/16 16:58; Start 10/31/16 at 07:30 Dextrose 12.5 gm PRN Q15MIN PRN IV SEE COMMENTS; Start 10/30/16 at 19:15 Acetaminophen (Tylenol) 650 mg PRN Q6HRS PRN PO PAIN / TEMP Last administered on 11/02/16 16:25; Start 10/31/16 at 17:37 Buspirone HCl (Buspar) 5 mg BID92 PO Last administered on 11/02/16 08:40; Start 11/02/16 at 09:00 Active Scripts Active Reported Zyprexa Zydis (Olanzapine) 5 Mg Tab.rapdis 5 Mg PO TID Bisacodyl 10 Mg Supp.rect 10 Mg RC PRN DAILY PRN Mucinex (Guaifenesin) 1,200 Mg Tbmp.12hr 1,200 Mg PO PRN Q12HR PRN Docusate Sodium 100 Mg Capsule 200 Mg PO QHS Zyprexa Zydis (Olanzapine) 5 Mg Tab.rapdis 2.5 Mg PO PRN Q6HRS PRN Escitalopram Oxalate 10 Mg Tablet 15 Mg PO DAILY Quetiapine Fumarate 25 Mg Tablet 12.5 Mg PO HS Milk Of Magnesia (Magnesium Hydroxide) 2,400 Mg/10 Ml Oral.susp 2,400 Mg PO PRN QHS PRN Depakote Sprinkle (Divalproex Sodium) 125 Mg Cap.sprink 125 Mg PO TID Tylenol (Acetaminophen) 325 Mg Tablet 650 Mg PO PRN Q6HRS PRN Nexium Capsule (Esomeprazole Magnesium) 40 Mg Capsule.dr 40 Mg PO DAILY Trazodone Hcl 100 Mg Tablet 50 Mg PO QHS Atorvastatin Calcium 40 Mg Tablet 40 Mg PO QHS Lasix (Furosemide) 20 Mg Tablet 40 Mg PO DAILY Amiodarone Hcl 200 Mg Tablet 200 Mg PO DAILY Levothyroxine Sodium 88 Mcg Tablet 88 Mcg PO DAILYAC Namenda Xr (Memantine Hcl) 28 Mg Cap.spr.24 28 Mg PO DAILY Diagnosis: Problems: (1) Dementia with behavioral disturbance (2) Anxiety disorder (3) Impulse control disorder (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
[2016-11-03 06:24] VITALS: BP 126/72
[2016-11-03] MEDS: INSULIN ASPART 300 UNITS/3 ML INSULN.PEN SQ SCH ×3 (07:50→17:25)
[2016-11-03 08:28] LABS: BASO % 1 % (0-3); EOS # 0.1 x10^3/uL (0.0-0.7); EOS % 2 % (0-3); HEMATOCRIT 44.6 % (39.0-53.0); HEMOGLOBIN 15.1 g/dL (13.0-17.5); LYMPH # 1.9 x10^3/uL (1.0-4.8); LYMPH % 28 % (24-48); MEAN CORPUSCULAR HEMOGLOBIN 33 pg (25-35); MEAN CORPUSCULAR HGB CONC 34 g/dL (31-37); MEAN CORPUSCULAR VOLUME 97 fL (79-100); MONO # 0.9 x10^3/uL (0.0-1.1); MONO % 13 % (0-9); NEUT # 3.8 x10^3uL (1.8-7.7); NEUT % 56 % (31-73); PLATELET COUNT 193 x10^3/uL (140-400); RED BLOOD COUNT 4.59 x10^6/uL (4.30-5.70); RED CELL DISTRIBUTION WIDTH 14.4 % (11.5-14.5); WHITE BLOOD COUNT 6.8 x10^3/uL (4.0-11.0)
[2016-11-03 08:58] LABS: ALBUMIN 3.1 g/dL (3.4-5.0); ALBUMIN/GLOBULIN RATIO 0.8 (1.0-1.7); CALCIUM 9.1 mg/dL (8.5-10.1); CREATININE 1.4 mg/dL (0.7-1.3); GFR 48.4; TOTAL BILIRUBIN 0.8 mg/dL (0.2-1.0); TOTAL PROTEIN 7.2 g/dL (6.4-8.2)
[2016-11-03 09:00] LABS: VAL ACID 6 mcg/mL (50-100)
[2016-11-03] MEDS: AMIODARONE HCL 200 MG TABLET PO SCH (09:44)
[2016-11-03] MEDS: PANTOPRAZOLE 40 MG TABLET. PO SCH (09:44)
[2016-11-03] MEDS: ESCITALOPRAM 20 MG TABLET. PO SCH (09:44)
[2016-11-03] MEDS: FUROSEMIDE 20 MG TABLET PO SCH (09:44)
[2016-11-03] MEDS: busPIRone 5 MG TABLET. PO SCH ×3 (09:45→14:23)
[2016-11-03] MEDS: MEMANTINE 10 MG TABLET. PO SCH ×2 (09:45→19:44)
[2016-11-03] MEDS: LEVOTHYROXINE 88 MCG TABLET PO SCH (09:54)
[2016-11-03 15:52] VITALS: BP 101/63
[2016-11-03] MEDS: QUEtiapine 25 MG TABLET. PO SCH (19:44)
[2016-11-03] MEDS: ATORVASTATIN CALCIUM 20 MG TABLET PO SCH (19:44)
[2016-11-03] MEDS: DOCUSATE SODIUM 100 MG CAPSULE PO SCH (19:44)
[2016-11-03] MEDS: traZODone 50 MG TABLET. PO SCH (19:47)
[2016-11-03] MEDS: INSULIN DETEMIR 300 UNITS/3 ML INSULN.PEN. SQ SCH (19:47)
--- NOTE | 2016-11-03 19:53 | PDOC ---
Exam Irving Demential Exam: Irving Note: Please also refer to the separate dictated note~for this date of service dictated separately.~Patient seen individually. Discussed the patient with Nursing staff reviewed the chart.~Reviewed interim history and current functioning. Reviewed vital signs,~Labs/ Radiology~and current medications noted below. Continue current treatment with the changes noted in the dictated addendum note Assessment: Vital Signs: Vital Signs Date Time Temp Pulse Resp B/P (MAP) Pulse Ox O2 Delivery O2 Flow Rate FiO2 11/03/16 15:52 97.4 63 19 101/63 (76) 97 10/30/16 05:52 Room Air I&O Intake and Output 11/03/16 07:00 Intake Total 840 ml Balance 840 ml Intake Oral 840 ml # Voids 1 Labs: Laboratory Tests Test 11/03/16 07:28 11/03/16 07:48 11/03/16 12:00 11/03/16 17:22 Glucose (Fingerstick) 80 mg/dL (70-99) 105 mg/dL (70-99) H 114 mg/dL (70-99) H White Blood Count 6.8 x10^3/uL (4.0-11.0) Red Blood Count 4.59 x10^6/uL (4.30-5.70) Hemoglobin 15.1 g/dL (13.0-17.5) Hematocrit 44.6 % (39.0-53.0) Mean Corpuscular Volume 97 fL (79-100) Mean Corpuscular Hemoglobin 33 pg (25-35) Mean Corpuscular Hemoglobin Concent 34 g/dL (31-37) Red Cell Distribution Width 14.4 % (11.5-14.5) Platelet Count 193 x10^3/uL (140-400) Neutrophils (%) (Auto) 56 % (31-73) Lymphocytes (%) (Auto) 28 % (24-48) Monocytes (%) (Auto) 13 % (0-9) H Eosinophils (%) (Auto) 2 % (0-3) Basophils (%) (Auto) 1 % (0-3) Neutrophils # (Auto) 3.8 x10^3uL (1.8-7.7) Lymphocytes # (Auto) 1.9 x10^3/uL (1.0-4.8) Monocytes # (Auto) 0.9 x10^3/uL (0.0-1.1) Eosinophils # (Auto) 0.1 x10^3/uL (0.0-0.7) Basophils # (Auto) 0.0 x10^3/uL (0.0-0.2) Sodium Level 147 mmol/L (136-145) H Potassium Level 4.0 mmol/L (3.5-5.1) Chloride Level 108 mmol/L (98-107) H Carbon Dioxide Level 35 mmol/L (21-32) H Anion Gap 4 (6-14) L Blood Urea Nitrogen 33 mg/dL (8-26) H Creatinine 1.4 mg/dL (0.7-1.3) H Estimated GFR (Cockcroft-Gault) 48.4 BUN/Creatinine Ratio 24 (6-20) H Glucose Level 93 mg/dL (70-99) Calcium Level 9.1 mg/dL (8.5-10.1) Magnesium Level 2.2 mg/dL (1.8-2.4) Total Bilirubin 0.8 mg/dL (0.2-1.0) Aspartate Amino Transferase (AST) 68 U/L (15-37) H Alanine Aminotransferase (ALT) 37 U/L (16-63) Alkaline Phosphatase 97 U/L (46-116) Total Protein 7.2 g/dL (6.4-8.2) Albumin 3.1 g/dL (3.4-5.0) L Albumin/Globulin Ratio 0.8 (1.0-1.7) L Valproic Acid Level 6 mcg/mL (50-100) L Valproic Acid Last Dose Date 11/02/2016 Valproic Acid Last Dose Time 1400 Test 11/03/16 19:25 Glucose (Fingerstick) 113 mg/dL (70-99) H Current Medications: Meds: Current Medications Acetaminophen (Tylenol) 650 mg PRN Q6HRS PRN PO PAIN / TEMP; Start 10/29/16 at 18:00; Stop 10/31/16 at 17:37; Status DC Multi-Ingredient Ointment (Analgesic [place]) 1 jazz PRN QID PRN TP MUSCLE PAIN; Start 10/29/16 at 18:00 Al Hydroxide/Mg Hydroxide (Mylanta Plus Xs) 15 ml PRN AFTMEALHC PRN PO DYSPEPSIA; Start 10/29/16 at 18:00 Magnesium Hydroxide (Milk Of Magnesia) 2,400 mg PRN QHS PRN PO CONSTIPATION; Start 10/29/16 at 18:00 Acetaminophen (Tylenol) 650 mg PRN Q6HRS PRN PO PAIN; Start 10/29/16 at 18:15; Stop 10/29/16 at 18:21; Status DC Amiodarone HCl (Cordarone) 200 mg DAILY PO Last administered on 11/03/16 09:44 ; Start 10/30/16 at 09:00 Bisacodyl (Dulcolax Supp) 10 mg PRN DAILY PRN RC CONSTIPATION; Start 10/29/16 at 18:15 Divalproex Sodium (Depakote Sprinkles) 125 mg TID PO Last administered on 14:01; Start 10/29/16 at 21:00; Stop 10/30/16 at 18:06; Status DC Docusate Sodium (Colace) 200 mg QHS PO Last administered on 11/03/16 19:44; Start 10/29/16 at 21:00 Furosemide (Lasix) 40 mg DAILY PO Last administered on 11/03/16 09:44; Start at 09:00 Levothyroxine Sodium (Synthroid) 88 mcg DAILYAC PO Last administered on 09:54; Start 10/30/16 at 07:30; Stop 11/03/16 at 10:11; Status DC Olanzapine (ZyPREXA ZYDIS) 2.5 mg PRN Q6HRS PRN PO ANXIETY / AGITATION; Start 10/29/16 at 18:15 Olanzapine (ZyPREXA ZYDIS) 5 mg TID PO Last administered on 11/03/16 19:44; Start 10/29/16 at 21:00 Quetiapine Fumarate (SEROquel) 12.5 mg HS PO Last administered on 11/03/16 19: 44; Start 10/29/16 at 21:00 Trazodone HCl (Desyrel) 50 mg QHS PO Last administered on 11/02/16 19:42; Start 10/29/16 at 21:00; Stop 11/03/16 at 08:54; Status DC Atorvastatin Calcium (Lipitor) 40 mg QHS PO Last administered on 11/03/16 19:44 ; Start 10/29/16 at 21:00 Escitalopram Oxalate (Lexapro) 15 mg DAILY PO Last administered on 11/03/16 09: 44; Start 10/30/16 at 09:00 Pantoprazole Sodium (Protonix) 40 mg DAILYAC PO Last administered on 11/03/16 09:44; Start 10/30/16 at 07:30 Guaifenesin (Mucinex Er) 1,200 mg PRN Q12HR PRN PO CHEST CONGESTION; Start 10/29 at 21:00 Non-Formulary Medication 2,400 mg PRN QHS PRN PO CONSTIPATION; Start 10/29/16 at 18:15; Stop 10/29/16 at 18:22; Status DC Memantine (Namenda) 10 mg BID PO Last administered on 11/03/16 19:44; Start 10/29/16 at 09:00 Divalproex Sodium (Depakote Sprinkles) 250 mg BID92 PO Last administered on 10/31 13:08; Start 10/31/16 at 09:00; Stop 11/01/16 at 18:26; Status DC Insulin Detemir (Levemir) 6 units QHS SQ Last administered on 11/03/16 19:47; Start 10/30/16 at 21:00 Insulin Aspart (NovoLOG) 0-5 UNITS TIDBFRMEAL SQ Last administered on 10/31/16 16:58; Start 10/31/16 at 07:30 Dextrose 12.5 gm PRN Q15MIN PRN IV SEE COMMENTS; Start 10/30/16 at 19:15 Acetaminophen (Tylenol) 650 mg PRN Q6HRS PRN PO PAIN / TEMP Last administered on 11/02/16 16:25; Start 10/31/16 at 17:37 Buspirone HCl (Buspar) 5 mg BID92 PO Last administered on 11/03/16 09:45; Start 11/02/16 at 09:00 Trazodone HCl (Desyrel) 50 mg QHS PO Last administered on 11/03/16 19:47; Start 11/03/16 at 21:00 Levothyroxine Sodium (Synthroid) 88 mcg DAILY06 PO ; Start 11/04/16 at 06:00; Stop 11/04/16 at 06:00; Status DC Levothyroxine Sodium (Synthroid) 100 mcg DAILY06 PO ; Start 11/04/16 at 06:00 Active Scripts Active Reported Zyprexa Zydis (Olanzapine) 5 Mg Tab.rapdis 5 Mg PO TID Bisacodyl 10 Mg Supp.rect 10 Mg RC PRN DAILY PRN Mucinex (Guaifenesin) 1,200 Mg Tbmp.12hr 1,200 Mg PO PRN Q12HR PRN Docusate Sodium 100 Mg Capsule 200 Mg PO QHS Zyprexa Zydis (Olanzapine) 5 Mg Tab.rapdis 2.5 Mg PO PRN Q6HRS PRN Escitalopram Oxalate 10 Mg Tablet 15 Mg PO DAILY Quetiapine Fumarate 25 Mg Tablet 12.5 Mg PO HS Milk Of Magnesia (Magnesium Hydroxide) 2,400 Mg/10 Ml Oral.susp 2,400 Mg PO PRN QHS PRN Depakote Sprinkle (Divalproex Sodium) 125 Mg Cap.sprink 125 Mg PO TID Tylenol (Acetaminophen) 325 Mg Tablet 650 Mg PO PRN Q6HRS PRN Nexium Capsule (Esomeprazole Magnesium) 40 Mg Capsule.dr 40 Mg PO DAILY Trazodone Hcl 100 Mg Tablet 50 Mg PO QHS Atorvastatin Calcium 40 Mg Tablet 40 Mg PO QHS Lasix (Furosemide) 20 Mg Tablet 40 Mg PO DAILY Amiodarone Hcl 200 Mg Tablet 200 Mg PO DAILY Levothyroxine Sodium 88 Mcg Tablet 88 Mcg PO DAILYAC Namenda Xr (Memantine Hcl) 28 Mg Cap.spr.24 28 Mg PO DAILY Diagnosis: Problems: (1) Dementia with behavioral disturbance (2) Anxiety disorder (3) Impulse control disorder (4) Dementia in Alzheimer's disease with delusions (5) Dementia in Alzheimer's disease with depression (6) Dementia, vascular, with delusions (7) Dementia, vascular, with depression CAROLA GUILLEN MD Nov 03, 2016 19:53
--- NOTE | 2016-11-03 20:46 | PN ---
DATE: 11/02/2016 This is a late entry for 11/02/2016 and covers elements not covered in my initial note of 11/02/2016. SUBJECTIVE: I met with the patient in the evening of 11/02/2016. His a.m. meds on 8:05 were held due to being drowsy and the 1400 hours meds were held. He was yelling out when his bottom was wiped by the nursing staff and some of this is understandable. He is somewhat combative on the morning of 11/02/2016 with cares, received Zyprexa at 6:45. REVIEW OF SYSTEMS: Ambulation impaired, in a wheelchair. No CV, , pulmonary, eye, ENT system symptoms on review. Reliability poor. MENTAL STATUS EXAM: Not very verbal, quite confused. Insight, judgment, recent and remote memory, attention, concentration, fund of knowledge poor, consistent with his diagnosis mentioned in my initial note. LABORATORY DATA: Reviewed. PLAN: Continue current psychotropics. He is not on anything that should be over-sedating causing the drowsiness during the day. We will continue to monitor and adjust as clinically indicated. I have carefully reviewed his psychotropic drug interactions. Risk-benefit ratio favors continuing current regimen for another day before deciding. CAROLA GUILLEN MD DR: OTF/shad JOB#: [id number] / [id number]
[2016-11-03] MEDS: MAGNESIUM HYDROXIDE 2,400 MG/30 ML ORAL.SUSP. PO PRN (21:38)
[2016-11-04] MEDS ORDERED: LEVOTHYROXINE 88 MCG TABLET PO SCH (06:00)
[2016-11-04] MEDS: LEVOTHYROXINE 100 MCG TABLET PO SCH (06:04)
[2016-11-04 06:06] VITALS: BP 103/65
[2016-11-04] MEDS: INSULIN ASPART 300 UNITS/3 ML INSULN.PEN SQ SCH ×3 (07:30→16:30)
[2016-11-04] MEDS: PANTOPRAZOLE 40 MG TABLET. PO SCH (10:59)
[2016-11-04] MEDS: MEMANTINE 10 MG TABLET. PO SCH ×2 (10:59→20:28)
[2016-11-04] MEDS: ESCITALOPRAM 20 MG TABLET. PO SCH (10:59)
[2016-11-04] MEDS: busPIRone 5 MG TABLET. PO SCH ×2 (11:00→14:00)
[2016-11-04] MEDS: AMIODARONE HCL 200 MG TABLET PO SCH (11:00)
[2016-11-04] MEDS: FUROSEMIDE 20 MG TABLET PO SCH (11:00)
[2016-11-04] MEDS: MAGNESIUM HYDROXIDE 2,400 MG/30 ML ORAL.SUSP. PO PRN (11:05)
[2016-11-04 16:12] VITALS: BP 103/64
--- NOTE | 2016-11-04 16:21 | RAD ---
AP abdomen radiograph 11/04/2016 Clinical history: Constipation. Three AP portable supine digital radiographs of the abdomen/pelvis were obtained. Comparison is made to the patient's CT scan of abdomen and pelvis dated 04/04/2016. 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 [employer] shunt tubing extends to overlie the right upper quadrant of the abdomen. The abdominal bowel gas pattern is nonobstructive. A moderate to large amount of stool is seen throughout the colon. Atherosclerotic calcification of the abdominal aorta and its branches is noted. Brachytherapy seeds overlie the prostate gland. The patient is status post extensive laminectomy throughout the lumbar spine. Degenerative changes are seen involving the lower thoracic and throughout the lumbar spine and both hips. Impression: Nonobstructive bowel gas pattern. Moderate to large amount of stool is seen throughout the colon.
[2016-11-04 16:31] LABS: ALBUMIN/GLOBULIN RATIO 0.8 (1.0-1.7); CALCIUM 8.7 mg/dL (8.5-10.1); CREATININE 1.4 mg/dL (0.7-1.3); GFR 48.4; MAGNESIUM 2.3 mg/dL (1.8-2.4); POTASSIUM 3.8 mmol/L (3.5-5.1); TOTAL BILIRUBIN 0.7 mg/dL (0.2-1.0)
[2016-11-04] MEDS ORDERED: SENNOSIDES/DOCUSATE 8.6/50MG TABLET. PO ONE (17:20)
--- NOTE | 2016-11-04 20:05 | PDOC ---
Exam [place] Demential Exam: [place] Note: Please also refer to the separate dictated note~for this date of service dictated separately.~Patient seen individually. Discussed the patient with Nursing staff reviewed the chart.~Reviewed interim history and current functioning. Reviewed vital signs,~Labs/ Radiology~and current medications noted below. Continue current treatment with the changes noted in the dictated addendum note Assessment: Vital Signs: Vital Signs Date Time Temp Pulse Resp B/P (MAP) Pulse Ox O2 Delivery O2 Flow Rate FiO2 11/04/16 16:12 97.1 66 18 103/64 (77) 94 Room Air I&O Intake and Output 11/04/16 07:00 Intake Total 360 ml Balance 360 ml Intake Oral 360 ml Labs: Laboratory Tests Test 11/04/16 07:08 11/04/16 11:30 11/04/16 16:03 11/04/16 16:40 Glucose (Fingerstick) 120 mg/dL (70-99) H 126 mg/dL (70-99) H 120 mg/dL (70-99) H Sodium Level 145 mmol/L (136-145) Potassium Level 3.8 mmol/L (3.5-5.1) Chloride Level 105 mmol/L (98-107) Carbon Dioxide Level 30 mmol/L (21-32) Anion Gap 10 (6-14) Blood Urea Nitrogen 29 mg/dL (8-26) H Creatinine 1.4 mg/dL (0.7-1.3) H Estimated GFR (Cockcroft-Gault) 48.4 BUN/Creatinine Ratio 21 (6-20) H Glucose Level 143 mg/dL (70-99) H Calcium Level 8.7 mg/dL (8.5-10.1) Magnesium Level 2.3 mg/dL (1.8-2.4) Total Bilirubin 0.7 mg/dL (0.2-1.0) Aspartate Amino Transferase (AST) 81 U/L (15-37) H Alanine Aminotransferase (ALT) 49 U/L (16-63) Alkaline Phosphatase 96 U/L (46-116) Total Protein 7.0 g/dL (6.4-8.2) Albumin 3.0 g/dL (3.4-5.0) L Albumin/Globulin Ratio 0.8 (1.0-1.7) L Test 11/04/16 19:05 Glucose (Fingerstick) 157 mg/dL (70-99) H Current Medications: Meds: Current Medications Acetaminophen (Tylenol) 650 mg PRN Q6HRS PRN PO PAIN / TEMP; Start 10/29/16 at 18:00; Stop 10/31/16 at 17:37; Status DC Multi-Ingredient Ointment (Analgesic [place]) 1 jazz PRN QID PRN TP MUSCLE PAIN; Start 10/29/16 at 18:00 Al Hydroxide/Mg Hydroxide (Mylanta Plus Xs) 15 ml PRN AFTMEALHC PRN PO DYSPEPSIA; Start 10/29/16 at 18:00 Magnesium Hydroxide (Milk Of Magnesia) 2,400 mg PRN QHS PRN PO CONSTIPATION Last administered on 11/04/16 11:05; Start 10/29/16 at 18:00 Acetaminophen (Tylenol) 650 mg PRN Q6HRS PRN PO PAIN; Start 10/29/16 at 18:15; Stop 10/29/16 at 18:21; Status DC Amiodarone HCl (Cordarone) 200 mg DAILY PO Last administered on 11/04/16 11:00 ; Start 10/30/16 at 09:00 Bisacodyl (Dulcolax Supp) 10 mg PRN DAILY PRN RC CONSTIPATION; Start 10/29/16 at 18:15 Divalproex Sodium (Depakote Sprinkles) 125 mg TID PO Last administered on 14:01; Start 10/29/16 at 21:00; Stop 10/30/16 at 18:06; Status DC Docusate Sodium (Colace) 200 mg QHS PO Last administered on 11/03/16 19:44; Start 10/29/16 at 21:00 Furosemide (Lasix) 40 mg DAILY PO Last administered on 11/04/16 11:00; Start at 09:00 Levothyroxine Sodium (Synthroid) 88 mcg DAILYAC PO Last administered on 09:54; Start 10/30/16 at 07:30; Stop 11/03/16 at 10:11; Status DC Olanzapine (ZyPREXA ZYDIS) 2.5 mg PRN Q6HRS PRN PO ANXIETY / AGITATION Last administered on 11/04/16 06:29; Start 10/29/16 at 18:15 Olanzapine (ZyPREXA ZYDIS) 5 mg TID PO Last administered on 11/04/16 10:59; Start 10/29/16 at 21:00; Stop 11/04/16 at 15:24; Status DC Quetiapine Fumarate (SEROquel) 12.5 mg HS PO Last administered on 11/03/16 19: 44; Start 10/29/16 at 21:00 Trazodone HCl (Desyrel) 50 mg QHS PO Last administered on 11/02/16 19:42; Start 10/29/16 at 21:00; Stop 11/03/16 at 08:54; Status DC Atorvastatin Calcium (Lipitor) 40 mg QHS PO Last administered on 11/03/16 19:44 ; Start 10/29/16 at 21:00 Escitalopram Oxalate (Lexapro) 15 mg DAILY PO Last administered on 11/04/16 10: 59; Start 10/30/16 at 09:00; Stop 11/04/16 at 17:57; Status DC Pantoprazole Sodium (Protonix) 40 mg DAILYAC PO Last administered on 11/04/16 10:59; Start 10/30/16 at 07:30 Guaifenesin (Mucinex Er) 1,200 mg PRN Q12HR PRN PO CHEST CONGESTION; Start 10/29 at 21:00 Non-Formulary Medication 2,400 mg PRN QHS PRN PO CONSTIPATION; Start 10/29/16 at 18:15; Stop 10/29/16 at 18:22; Status DC Memantine (Namenda) 10 mg BID PO Last administered on 11/04/16 10:59; Start 10/29/16 at 09:00 Divalproex Sodium (Depakote Sprinkles) 250 mg BID92 PO Last administered on 10/31 13:08; Start 10/31/16 at 09:00; Stop 11/01/16 at 18:26; Status DC Insulin Detemir (Levemir) 6 units QHS SQ Last administered on 11/03/16 19:47; Start 10/30/16 at 21:00 Insulin Aspart (NovoLOG) 0-5 UNITS TIDBFRMEAL SQ Last administered on 10/31/16 16:58; Start 10/31/16 at 07:30 Dextrose 12.5 gm PRN Q15MIN PRN IV SEE COMMENTS; Start 10/30/16 at 19:15 Acetaminophen (Tylenol) 650 mg PRN Q6HRS PRN PO PAIN / TEMP Last administered on 11/02/16 16:25; Start 10/31/16 at 17:37 Buspirone HCl (Buspar) 5 mg BID92 PO Last administered on 11/04/16 11:00; Start 11/02/16 at 09:00 Trazodone HCl (Desyrel) 50 mg QHS PO Last administered on 11/03/16 19:47; Start 11/03/16 at 21:00 Levothyroxine Sodium (Synthroid) 88 mcg DAILY06 PO ; Start 11/04/16 at 06:00; Stop 11/04/16 at 06:00; Status DC Levothyroxine Sodium (Synthroid) 100 mcg DAILY06 PO Last administered on 06:04; Start 11/04/16 at 06:00 Olanzapine (ZyPREXA ZYDIS) 5 mg BID PO ; Start 11/04/16 at 21:00; Stop 11/06/16 at 21:01 Olanzapine (ZyPREXA ZYDIS) 5 mg DAILY PO ; Start 11/07/16 at 09:00; Stop at 09:01 Senna/Docusate Sodium (Senna Plus) 3 tab 1X ONCE PO Last administered on 17:23; Start 11/04/16 at 17:20; Stop 11/04/16 at 17:21; Status DC Bupropion HCl (Wellbutrin) 75 mg DAILY PO ; Start 11/05/16 at 09:00; Stop at 21:00 Bupropion HCl (Wellbutrin) 75 mg BID@0900,1200 PO ; Start 11/05/16 at 09:00 Active Scripts Active Reported Zyprexa Zydis (Olanzapine) 5 Mg Tab.rapdis 5 Mg PO TID Bisacodyl 10 Mg Supp.rect 10 Mg RC PRN DAILY PRN Mucinex (Guaifenesin) 1,200 Mg Tbmp.12hr 1,200 Mg PO PRN Q12HR PRN Docusate Sodium 100 Mg Capsule 200 Mg PO QHS Zyprexa Zydis (Olanzapine) 5 Mg Tab.rapdis 2.5 Mg PO PRN Q6HRS PRN Escitalopram Oxalate 10 Mg Tablet 15 Mg PO DAILY Quetiapine Fumarate 25 Mg Tablet 12.5 Mg PO HS Milk Of Magnesia (Magnesium Hydroxide) 2,400 Mg/10 Ml Oral.susp 2,400 Mg PO PRN QHS PRN Depakote Sprinkle (Divalproex Sodium) 125 Mg Cap.sprink 125 Mg PO TID Tylenol (Acetaminophen) 325 Mg Tablet 650 Mg PO PRN Q6HRS PRN Nexium Capsule (Esomeprazole Magnesium) 40 Mg Capsule.dr 40 Mg PO DAILY Trazodone Hcl 100 Mg Tablet 50 Mg PO QHS Atorvastatin Calcium 40 Mg Tablet 40 Mg PO QHS Lasix (Furosemide) 20 Mg Tablet 40 Mg PO DAILY Amiodarone Hcl 200 Mg Tablet 200 Mg PO DAILY Levothyroxine Sodium 88 Mcg Tablet 88 Mcg PO DAILYAC Namenda Xr (Memantine Hcl) 28 Mg Cap.spr.24 28 Mg PO DAILY Diagnosis: Problems: (1) Dementia with behavioral disturbance (2) Anxiety disorder (3) Impulse control disorder (4) Dementia in Alzheimer's disease with delusions (5) Dementia in Alzheimer's disease with depression (6) Dementia, vascular, with delusions (7) Dementia, vascular, with depression CAROLA GUILLEN MD Nov 04, 2016 20:05
[2016-11-04] MEDS: DOCUSATE SODIUM 100 MG CAPSULE PO SCH (20:28)
[2016-11-04] MEDS: ATORVASTATIN CALCIUM 20 MG TABLET PO SCH (20:28)
[2016-11-04] MEDS: traZODone 50 MG TABLET. PO SCH (20:28)
[2016-11-04] MEDS: QUEtiapine 25 MG TABLET. PO SCH (20:29)
[2016-11-04] MEDS: INSULIN DETEMIR 300 UNITS/3 ML INSULN.PEN. SQ SCH (20:30)
--- NOTE | 2016-11-05 01:06 | PN ---
DATE: 11/03/2016 PSYCHIATRIC PROGRESS NOTE This is a late entry for 11/03/2016, covers elements not covered in my initial note of 11/03/2016. SUBJECTIVE: Per nursing report, the patient seems to be declining. Diet has been changed to pureed. Previous evening, he was yelling, did well and staff stayed with him in his room, got up the morning of 11/03/2016, refused his 1400 medications, resistive, aggressive during blood sugar checks with fingersticks. REVIEW OF SYSTEMS: Ambulation impaired. No CV, , pulmonary, eye, ENT system symptoms on review. Reliability poor. MENTAL STATUS EXAM: Oriented to himself. Insight, judgment, recent and remote memory, attention, concentration, fund of knowledge poor, consistent with his diagnosis. LABORATORY DATA: Reviewed. IMPRESSION: Major neurocognitive disorder, Alzheimer, vascular with depression, delusion, behavioral disturbance; anxiety disorder, unspecified; impulse control disorder, unspecified. PLAN: Maintain Lexapro 10 mg a day, trazodone 50 mg at bedtime, Seroquel 12.5 mg at bedtime, BuSpar 5 mg b.i.d., Namenda XR 28 mg a day, Zyprexa p.r.n., and scheduled Zyprexa 5 mg 3 times a day, which we will reduce to b.i.d. for 2 days, then once a day for 2 days and stop it. We may increase the Seroquel if needed in the interim as a mood stabilizer or use Depakote if agitation and aggression resurfaces. CAROLA GUILLEN MD DR: OTF/shad JOB#: [id number] / [id number]
[2016-11-05 05:49] VITALS: BP 121/64
[2016-11-05] MEDS: LEVOTHYROXINE 100 MCG TABLET PO SCH (05:57)
[2016-11-05] MEDS: INSULIN ASPART 300 UNITS/3 ML INSULN.PEN SQ SCH ×3 (07:30→16:30)
[2016-11-05] MEDS: busPIRone 5 MG TABLET. PO SCH ×2 (08:43→14:00)
[2016-11-05] MEDS: FUROSEMIDE 20 MG TABLET PO SCH (08:43)
[2016-11-05] MEDS: MEMANTINE 10 MG TABLET. PO SCH ×2 (08:43→21:18)
[2016-11-05] MEDS: PANTOPRAZOLE 40 MG TABLET. PO SCH (08:44)
[2016-11-05] MEDS: AMIODARONE HCL 200 MG TABLET PO SCH (08:44)
[2016-11-05] MEDS: buPROPion 75 MG TABLET PO SCH (08:50)
[2016-11-05] MEDS ORDERED: buPROPion 75 MG TABLET PO SCH (09:00)
[2016-11-05] MEDS: BISACODYL 10 MG SUPP.RECT RC PRN (14:05)
[2016-11-05 16:00] VITALS: BP 107/67
--- NOTE | 2016-11-05 19:53 | PDOC ---
Exam Irving Demential Exam: Irving Note: Please also refer to the separate dictated note~for this date of service dictated separately.~Patient seen individually. Discussed the patient with Nursing staff reviewed the chart.~Reviewed interim history and current functioning. Reviewed vital signs,~Labs/ Radiology~and current medications noted below. Continue current treatment with the changes noted in the dictated addendum note Assessment: Vital Signs: Vital Signs Date Time Temp Pulse Resp B/P (MAP) Pulse Ox O2 Delivery O2 Flow Rate FiO2 11/05/16 16:00 97.3 64 18 107/67 (80) 94 11/04/16 16:12 Room Air I&O Intake and Output 11/05/16 07:00 Intake Total 560 ml Balance 560 ml Intake Oral 560 ml Labs: Laboratory Tests Test 11/05/16 08:25 11/05/16 12:00 11/05/16 17:05 11/05/16 19:11 Glucose (Fingerstick) 77 mg/dL (70-99) 122 mg/dL (70-99) H 133 mg/dL (70-99) H 204 mg/dL (70-99) H Current Medications: Meds: Current Medications Acetaminophen (Tylenol) 650 mg PRN Q6HRS PRN PO PAIN / TEMP; Start 10/29/16 at 18:00; Stop 10/31/16 at 17:37; Status DC Multi-Ingredient Ointment (Analgesic [place]) 1 jazz PRN QID PRN TP MUSCLE PAIN; Start 10/29/16 at 18:00 Al Hydroxide/Mg Hydroxide (Mylanta Plus Xs) 15 ml PRN AFTMEALHC PRN PO DYSPEPSIA; Start 10/29/16 at 18:00 Magnesium Hydroxide (Milk Of Magnesia) 2,400 mg PRN QHS PRN PO CONSTIPATION Last administered on 11/04/16 11:05; Start 10/29/16 at 18:00 Acetaminophen (Tylenol) 650 mg PRN Q6HRS PRN PO PAIN; Start 10/29/16 at 18:15; Stop 10/29/16 at 18:21; Status DC Amiodarone HCl (Cordarone) 200 mg DAILY PO Last administered on 11/05/16 08:44 ; Start 10/30/16 at 09:00 Bisacodyl (Dulcolax Supp) 10 mg PRN DAILY PRN RC CONSTIPATION Last administered on 11/05/16 14:05; Start 10/29/16 at 18:15 Divalproex Sodium (Depakote Sprinkles) 125 mg TID PO Last administered on 14:01; Start 10/29/16 at 21:00; Stop 10/30/16 at 18:06; Status DC Docusate Sodium (Colace) 200 mg QHS PO Last administered on 11/04/16 20:28; Start 10/29/16 at 21:00 Furosemide (Lasix) 40 mg DAILY PO Last administered on 11/05/16 08:43; Start at 09:00 Levothyroxine Sodium (Synthroid) 88 mcg DAILYAC PO Last administered on 09:54; Start 10/30/16 at 07:30; Stop 11/03/16 at 10:11; Status DC Olanzapine (ZyPREXA ZYDIS) 2.5 mg PRN Q6HRS PRN PO ANXIETY / AGITATION Last administered on 11/04/16 06:29; Start 10/29/16 at 18:15 Olanzapine (ZyPREXA ZYDIS) 5 mg TID PO Last administered on 11/04/16 10:59; Start 10/29/16 at 21:00; Stop 11/04/16 at 15:24; Status DC Quetiapine Fumarate (SEROquel) 12.5 mg HS PO Last administered on 11/04/16 20: 29; Start 10/29/16 at 21:00 Trazodone HCl (Desyrel) 50 mg QHS PO Last administered on 11/02/16 19:42; Start 10/29/16 at 21:00; Stop 11/03/16 at 08:54; Status DC Atorvastatin Calcium (Lipitor) 40 mg QHS PO Last administered on 11/04/16 20:28 ; Start 10/29/16 at 21:00 Escitalopram Oxalate (Lexapro) 15 mg DAILY PO Last administered on 11/04/16 10: 59; Start 10/30/16 at 09:00; Stop 11/04/16 at 17:57; Status DC Pantoprazole Sodium (Protonix) 40 mg DAILYAC PO Last administered on 11/05/16 08:44; Start 10/30/16 at 07:30 Guaifenesin (Mucinex Er) 1,200 mg PRN Q12HR PRN PO CHEST CONGESTION; Start 10/29 at 21:00 Non-Formulary Medication 2,400 mg PRN QHS PRN PO CONSTIPATION; Start 10/29/16 at 18:15; Stop 10/29/16 at 18:22; Status DC Memantine (Namenda) 10 mg BID PO Last administered on 11/05/16 08:43; Start 10/29/16 at 09:00 Divalproex Sodium (Depakote Sprinkles) 250 mg BID92 PO Last administered on 10/31 13:08; Start 10/31/16 at 09:00; Stop 11/01/16 at 18:26; Status DC Insulin Detemir (Levemir) 6 units QHS SQ Last administered on 11/04/16 20:30; Start 10/30/16 at 21:00 Insulin Aspart (NovoLOG) 0-5 UNITS TIDBFRMEAL SQ Last administered on 10/31/16 16:58; Start 10/31/16 at 07:30 Dextrose 12.5 gm PRN Q15MIN PRN IV SEE COMMENTS; Start 10/30/16 at 19:15 Acetaminophen (Tylenol) 650 mg PRN Q6HRS PRN PO PAIN / TEMP Last administered on 11/02/16 16:25; Start 10/31/16 at 17:37 Buspirone HCl (Buspar) 5 mg BID92 PO Last administered on 11/05/16 08:43; Start 11/02/16 at 09:00 Trazodone HCl (Desyrel) 50 mg QHS PO Last administered on 11/04/16 20:28; Start 11/03/16 at 21:00 Levothyroxine Sodium (Synthroid) 88 mcg DAILY06 PO ; Start 11/04/16 at 06:00; Stop 11/04/16 at 06:00; Status DC Levothyroxine Sodium (Synthroid) 100 mcg DAILY06 PO Last administered on 05:57; Start 11/04/16 at 06:00 Olanzapine (ZyPREXA ZYDIS) 5 mg BID PO Last administered on 11/05/16 08:43; Start 11/04/16 at 21:00; Stop 11/06/16 at 21:01 Olanzapine (ZyPREXA ZYDIS) 5 mg DAILY PO ; Start 11/07/16 at 09:00; Stop at 09:01 Senna/Docusate Sodium (Senna Plus) 3 tab 1X ONCE PO Last administered on 17:23; Start 11/04/16 at 17:20; Stop 11/04/16 at 17:21; Status DC Bupropion HCl (Wellbutrin) 75 mg DAILY PO Last administered on 11/05/16t 08:50; Start 11/05/16 at 09:00; Stop 11/06/16 at 21:00 Bupropion HCl (Wellbutrin) 75 mg BID@0900,1200 PO ; Start 11/05/16 at 09:00; Stop 11/05/16 at 09:00; Status DC Bupropion HCl (Wellbutrin) 75 mg BID@0900,1200 PO ; Start 11/07/16 at 09:00 Mirtazapine (Remeron) 7.5 mg QHS PO ; Start 11/05/16 at 21:00 Active Scripts Active Reported Zyprexa Zydis (Olanzapine) 5 Mg Tab.rapdis 5 Mg PO TID Bisacodyl 10 Mg Supp.rect 10 Mg RC PRN DAILY PRN Mucinex (Guaifenesin) 1,200 Mg Tbmp.12hr 1,200 Mg PO PRN Q12HR PRN Docusate Sodium 100 Mg Capsule 200 Mg PO QHS Zyprexa Zydis (Olanzapine) 5 Mg Tab.rapdis 2.5 Mg PO PRN Q6HRS PRN Escitalopram Oxalate 10 Mg Tablet 15 Mg PO DAILY Quetiapine Fumarate 25 Mg Tablet 12.5 Mg PO HS Milk Of Magnesia (Magnesium Hydroxide) 2,400 Mg/10 Ml Oral.susp 2,400 Mg PO PRN QHS PRN Depakote Sprinkle (Divalproex Sodium) 125 Mg Cap.sprink 125 Mg PO TID Tylenol (Acetaminophen) 325 Mg Tablet 650 Mg PO PRN Q6HRS PRN Nexium Capsule (Esomeprazole Magnesium) 40 Mg Capsule.dr 40 Mg PO DAILY Trazodone Hcl 100 Mg Tablet 50 Mg PO QHS Atorvastatin Calcium 40 Mg Tablet 40 Mg PO QHS Lasix (Furosemide) 20 Mg Tablet 40 Mg PO DAILY Amiodarone Hcl 200 Mg Tablet 200 Mg PO DAILY Levothyroxine Sodium 88 Mcg Tablet 88 Mcg PO DAILYAC Namenda Xr (Memantine Hcl) 28 Mg Cap.spr.24 28 Mg PO DAILY Diagnosis: Problems: (1) Dementia with behavioral disturbance (2) Anxiety disorder (3) Impulse control disorder (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
[2016-11-05] MEDS: INSULIN DETEMIR 300 UNITS/3 ML INSULN.PEN. SQ SCH (21:17)
[2016-11-05] MEDS: ATORVASTATIN CALCIUM 20 MG TABLET PO SCH (21:18)
[2016-11-05] MEDS: DOCUSATE SODIUM 100 MG CAPSULE PO SCH (21:18)
[2016-11-05] MEDS: QUEtiapine 25 MG TABLET. PO SCH (21:18)
[2016-11-05] MEDS: traZODone 50 MG TABLET. PO SCH (21:18)
[2016-11-05] MEDS: MIRTAZAPINE 7.5 MG TABLET. PO SCH (21:20)
--- NOTE | 2016-11-06 00:47 | PN ---
DATE: 11/04/2016 This is a late entry for 11/04/2016 and covers the elements not covered in my initial note of 11/04/2016. SUBJECTIVE: I met with the patient the evening of 11/04/2016. His KUB showed marked constipation, we are treating symptomatically with no bowel movement since 10/29/2016. Appetite has been poor, but probably partly as a consequence of this. He has been yelling out in the day room, occasionally noncompliant with medications, agitated, combative at dinnertime previous day. REVIEW OF SYSTEMS: Ambulation impaired. No CV, , pulmonary, eye, ENT system symptoms on review. Reliability poor. MENTAL STATUS EXAM: Oriented to himself. Insight, judgment, recent and remote memory, attention, concentration, fund of knowledge poor, consistent with his diagnosis mentioned in my initial note. PLAN: Change Lexapro to Wellbutrin 75 mg once a day, increasing in 2 days to 75 mg b.i.d. since Lexapro is unavailable at our hospital pharmacy; maintain trazodone, Namenda and Seroquel along with Zyprexa p.r.n. Scheduled Zyprexa 5 mg 3 times a day has been discontinued. Maintain BuSpar 5 mg b.i.d. Adjust further as clinically indicated. MAN Michelle GUILLEN MD DR: OTF/shad JOB#: [id number] / [id number]
[2016-11-06] MEDS: LEVOTHYROXINE 100 MCG TABLET PO SCH (05:05)
[2016-11-06] MEDS: INSULIN ASPART 300 UNITS/3 ML INSULN.PEN SQ SCH ×3 (07:30→16:30)
[2016-11-06] MEDS: PANTOPRAZOLE 40 MG TABLET. PO SCH (07:30)
[2016-11-06 11:56] VITALS: BP 142/77
[2016-11-06] MEDS: buPROPion 75 MG TABLET PO SCH (11:57)
[2016-11-06] MEDS: AMIODARONE HCL 200 MG TABLET PO SCH (11:58)
[2016-11-06] MEDS: busPIRone 5 MG TABLET. PO SCH ×2 (11:58→14:00)
[2016-11-06] MEDS: FUROSEMIDE 20 MG TABLET PO SCH (11:58)
[2016-11-06] MEDS: MEMANTINE 10 MG TABLET. PO SCH ×2 (11:58→19:37)
[2016-11-06] MEDS: BISACODYL 10 MG SUPP.RECT RC PRN (14:54)
[2016-11-06 16:16] VITALS: BP 141/65
[2016-11-06] MEDS: traZODone 50 MG TABLET. PO SCH (19:36)
[2016-11-06] MEDS: DOCUSATE SODIUM 100 MG CAPSULE PO SCH (19:36)
[2016-11-06] MEDS: MIRTAZAPINE 7.5 MG TABLET. PO SCH (19:36)
[2016-11-06] MEDS: QUEtiapine 25 MG TABLET. PO SCH (19:37)
[2016-11-06] MEDS: ATORVASTATIN CALCIUM 20 MG TABLET PO SCH (19:37)
[2016-11-06] MEDS: INSULIN DETEMIR 300 UNITS/3 ML INSULN.PEN. SQ SCH (19:39)
--- NOTE | 2016-11-06 19:47 | PDOC ---
Exam Irving Demential Exam: Irving Note: Please also refer to the separate dictated note~for this date of service dictated separately.~Patient seen individually. Discussed the patient with Nursing staff reviewed the chart.~Reviewed interim history and current functioning. Reviewed vital signs,~Labs/ Radiology~and current medications noted below. Continue current treatment with the changes noted in the dictated addendum note Assessment: Vital Signs: Vital Signs Date Time Temp Pulse Resp B/P (MAP) Pulse Ox O2 Delivery O2 Flow Rate FiO2 11/06/16 16:16 97.2 91 20 141/65 (90) 94 11/04/16 16:12 Room Air I&O Intake and Output 11/06/16 07:00 Intake Total 480 ml Balance 480 ml Intake Oral 480 ml # Voids 2 # Bowel Movements 1 Labs: Laboratory Tests Test 11/06/16 07:14 11/06/16 11:17 11/06/16 16:21 11/06/16 19:16 Glucose (Fingerstick) 91 mg/dL (70-99) 90 mg/dL (70-99) 98 mg/dL (70-99) 181 mg/dL (70-99) H Current Medications: Meds: Current Medications Acetaminophen (Tylenol) 650 mg PRN Q6HRS PRN PO PAIN / TEMP; Start 10/29/16 at 18:00; Stop 10/31/16 at 17:37; Status DC Multi-Ingredient Ointment (Analgesic [place]) 1 jazz PRN QID PRN TP MUSCLE PAIN; Start 10/29/16 at 18:00 Al Hydroxide/Mg Hydroxide (Mylanta Plus Xs) 15 ml PRN AFTMEALHC PRN PO DYSPEPSIA; Start 10/29/16 at 18:00 Magnesium Hydroxide (Milk Of Magnesia) 2,400 mg PRN QHS PRN PO CONSTIPATION Last administered on 11/04/16 11:05; Start 10/29/16 at 18:00 Acetaminophen (Tylenol) 650 mg PRN Q6HRS PRN PO PAIN; Start 10/29/16 at 18:15; Stop 10/29/16 at 18:21; Status DC Amiodarone HCl (Cordarone) 200 mg DAILY PO Last administered on 11/06/16 11:58 ; Start 10/30/16 at 09:00 Bisacodyl (Dulcolax Supp) 10 mg PRN DAILY PRN RC CONSTIPATION Last administered on 11/06/16 14:54; Start 10/29/16 at 18:15 Divalproex Sodium (Depakote Sprinkles) 125 mg TID PO Last administered on 14:01; Start 10/29/16 at 21:00; Stop 10/30/16 at 18:06; Status DC Docusate Sodium (Colace) 200 mg QHS PO Last administered on 11/06/16 19:36; Start 10/29/16 at 21:00 Furosemide (Lasix) 40 mg DAILY PO Last administered on 11/06/16 11:58; Start at 09:00 Levothyroxine Sodium (Synthroid) 88 mcg DAILYAC PO Last administered on 09:54; Start 10/30/16 at 07:30; Stop 11/03/16 at 10:11; Status DC Olanzapine (ZyPREXA ZYDIS) 2.5 mg PRN Q6HRS PRN PO ANXIETY / AGITATION Last administered on 11/04/16 06:29; Start 10/29/16 at 18:15 Olanzapine (ZyPREXA ZYDIS) 5 mg TID PO Last administered on 11/04/16 10:59; Start 10/29/16 at 21:00; Stop 11/04/16 at 15:24; Status DC Quetiapine Fumarate (SEROquel) 12.5 mg HS PO Last administered on 11/06/16 19: 37; Start 10/29/16 at 21:00 Trazodone HCl (Desyrel) 50 mg QHS PO Last administered on 11/02/16 19:42; Start 10/29/16 at 21:00; Stop 11/03/16 at 08:54; Status DC Atorvastatin Calcium (Lipitor) 40 mg QHS PO Last administered on 11/06/16 19:37 ; Start 10/29/16 at 21:00 Escitalopram Oxalate (Lexapro) 15 mg DAILY PO Last administered on 11/04/16 10: 59; Start 10/30/16 at 09:00; Stop 11/04/16 at 17:57; Status DC Pantoprazole Sodium (Protonix) 40 mg DAILYAC PO Last administered on 11/05/16 08:44; Start 10/30/16 at 07:30 Guaifenesin (Mucinex Er) 1,200 mg PRN Q12HR PRN PO CHEST CONGESTION; Start 10/29 at 21:00 Non-Formulary Medication 2,400 mg PRN QHS PRN PO CONSTIPATION; Start 10/29/16 at 18:15; Stop 10/29/16 at 18:22; Status DC Memantine (Namenda) 10 mg BID PO Last administered on 11/06/16 19:37; Start 10/29/16 at 09:00 Divalproex Sodium (Depakote Sprinkles) 250 mg BID92 PO Last administered on 10/31 13:08; Start 10/31/16 at 09:00; Stop 11/01/16 at 18:26; Status DC Insulin Detemir (Levemir) 6 units QHS SQ Last administered on 11/06/16 19:39; Start 10/30/16 at 21:00 Insulin Aspart (NovoLOG) 0-5 UNITS TIDBFRMEAL SQ Last administered on 10/31/16 16:58; Start 10/31/16 at 07:30 Dextrose 12.5 gm PRN Q15MIN PRN IV SEE COMMENTS; Start 10/30/16 at 19:15 Acetaminophen (Tylenol) 650 mg PRN Q6HRS PRN PO PAIN / TEMP Last administered on 11/02/16 16:25; Start 10/31/16 at 17:37 Buspirone HCl (Buspar) 5 mg BID92 PO Last administered on 11/06/16 11:58; Start 11/02/16 at 09:00 Trazodone HCl (Desyrel) 50 mg QHS PO Last administered on 11/06/16 19:36; Start 11/03/16 at 21:00 Levothyroxine Sodium (Synthroid) 88 mcg DAILY06 PO ; Start 11/04/16 at 06:00; Stop 11/04/16 at 06:00; Status DC Levothyroxine Sodium (Synthroid) 100 mcg DAILY06 PO Last administered on 05:05; Start 11/04/16 at 06:00 Olanzapine (ZyPREXA ZYDIS) 5 mg BID PO Last administered on 11/06/16 19:38; Start 11/04/16 at 21:00; Stop 11/06/16 at 21:01 Olanzapine (ZyPREXA ZYDIS) 5 mg DAILY PO ; Start 11/07/16 at 09:00; Stop at 09:01 Senna/Docusate Sodium (Senna Plus) 3 tab 1X ONCE PO Last administered on 17:23; Start 11/04/16 at 17:20; Stop 11/04/16 at 17:21; Status DC Bupropion HCl (Wellbutrin) 75 mg DAILY PO Last administered on 11/06/16 11:57; Start 11/05/16 at 09:00; Stop 11/06/16 at 21:00 Bupropion HCl (Wellbutrin) 75 mg BID@0900,1200 PO ; Start 11/05/16 at 09:00; Stop 11/05/16 at 09:00; Status DC Bupropion HCl (Wellbutrin) 75 mg BID@0900,1200 PO ; Start 11/07/16 at 09:00 Mirtazapine (Remeron) 7.5 mg QHS PO Last administered on 11/06/16 19:36; Start 11/05/16 at 21:00 Active Scripts Active Reported Zyprexa Zydis (Olanzapine) 5 Mg Tab.rapdis 5 Mg PO TID Bisacodyl 10 Mg Supp.rect 10 Mg RC PRN DAILY PRN Mucinex (Guaifenesin) 1,200 Mg Tbmp.12hr 1,200 Mg PO PRN Q12HR PRN Docusate Sodium 100 Mg Capsule 200 Mg PO QHS Zyprexa Zydis (Olanzapine) 5 Mg Tab.rapdis 2.5 Mg PO PRN Q6HRS PRN Escitalopram Oxalate 10 Mg Tablet 15 Mg PO DAILY Quetiapine Fumarate 25 Mg Tablet 12.5 Mg PO HS Milk Of Magnesia (Magnesium Hydroxide) 2,400 Mg/10 Ml Oral.susp 2,400 Mg PO PRN QHS PRN Depakote Sprinkle (Divalproex Sodium) 125 Mg Cap.sprink 125 Mg PO TID Tylenol (Acetaminophen) 325 Mg Tablet 650 Mg PO PRN Q6HRS PRN Nexium Capsule (Esomeprazole Magnesium) 40 Mg Capsule.dr 40 Mg PO DAILY Trazodone Hcl 100 Mg Tablet 50 Mg PO QHS Atorvastatin Calcium 40 Mg Tablet 40 Mg PO QHS Lasix (Furosemide) 20 Mg Tablet 40 Mg PO DAILY Amiodarone Hcl 200 Mg Tablet 200 Mg PO DAILY Levothyroxine Sodium 88 Mcg Tablet 88 Mcg PO DAILYAC Namenda Xr (Memantine Hcl) 28 Mg Cap.spr.24 28 Mg PO DAILY Diagnosis: Problems: (1) Dementia with behavioral disturbance (2) Anxiety disorder (3) Impulse control disorder (4) Dementia in Alzheimer's disease with delusions (5) Dementia in Alzheimer's disease with depression (6) Dementia, vascular, with delusions (7) Dementia, vascular, with depression CAROLA GUILLEN MD Nov 06, 2016 19:47
--- NOTE | 2016-11-07 01:29 | PN ---
DATE: 11/05/2016 This late entry for 11/05/2016 covers elements not covered in my initial note of 11/05/2016. SUBJECTIVE: I met with the patient in the evening of 11/05/2016. He slept 1-1/2 hours previous evening, has not been combative, somewhat withdrawn, yells in his sleep, possibly hallucinating. He still has marked constipation. Suppository was given with no relief. I will defer to Dr. Mccyo. REVIEW OF SYSTEMS: Ambulation impaired. Not very forthcoming verbally. No CV, , pulmonary, eye, ENT system symptoms on review. MENTAL STATUS EXAM: Oriented to himself. Insight, judgment, recent and remote memory, attention, concentration, fund of knowledge poor, consistent with his diagnosis mentioned in my initial note. PLAN: Continue current psychotropics. Start Remeron 7.5 mg at bedtime, Wellbutrin increasing to 75 mg b.i.d., trazodone 50 mg at bedtime, Seroquel 12.5 mg at bedtime, Namenda 10 mg b.i.d., BuSpar 5 mg b.i.d. Possible transition to nursing facility on hospice care. We will check with Dr. Mccoy on this. CAROLA GUILLEN MD DR: OTF/shad JOB#: [id number] / [id number]
[2016-11-07] MEDS ORDERED: DEXT50VI2 IV (02:25)
[2016-11-07] MEDS ORDERED: INSU100I17 SQ (02:33)
[2016-11-07] MEDS ORDERED: INSU100V13 SQ (02:34)
[2016-11-07] MEDS ORDERED: LEVO100T5 PO (02:35)
[2016-11-07] MEDS ORDERED: MAG30ORA2 PO (02:37)
[2016-11-07] MEDS ORDERED: MEMA10TA PO (02:38)
[2016-11-07] MEDS ORDERED: METH29OI TP (02:39)
[2016-11-07] MEDS ORDERED: MIRT15TA3 PO (02:40)
[2016-11-07] MEDS ORDERED: PANT40TA5 PO (02:43)
[2016-11-07] MEDS ORDERED: BUSP5TAB PO (02:46)
[2016-11-07] MEDS ORDERED: BUPR150T8 PO (02:46)
[2016-11-07] MEDS: LEVOTHYROXINE 100 MCG TABLET PO SCH (05:50)
[2016-11-07 06:46] VITALS: BP 110/68
[2016-11-07] MEDS: INSULIN ASPART 300 UNITS/3 ML INSULN.PEN SQ SCH ×2 (08:23→12:02)
[2016-11-07 08:56] VITALS: BP 110/68
[2016-11-07] MEDS: busPIRone 5 MG TABLET. PO SCH ×2 (08:56→12:44)
[2016-11-07] MEDS: FUROSEMIDE 20 MG TABLET PO SCH (08:56)
[2016-11-07] MEDS: AMIODARONE HCL 200 MG TABLET PO SCH (08:56)
[2016-11-07] MEDS: PANTOPRAZOLE 40 MG TABLET. PO SCH (08:56)
[2016-11-07] MEDS: MEMANTINE 10 MG TABLET. PO SCH (08:56)
[2016-11-07] MEDS: buPROPion 75 MG TABLET PO SCH ×2 (08:57→12:44)
--- NOTE | 2016-11-07 21:57 | PDOC ---
Exam [facility] Demential Exam: [place] Note: Please also refer to the separate dictated note~for this date of service dictated separately.~Patient seen individually. Discussed the patient with Nursing staff reviewed the chart.~Reviewed interim history and current functioning. Reviewed vital signs,~Labs/ Radiology~and current medications noted below. Continue current treatment with the changes noted in the dictated addendum note Assessment: Vital Signs: Vital Signs Date Time Temp Pulse Resp B/P (MAP) Pulse Ox O2 Delivery O2 Flow Rate FiO2 11/07/16 08:56 71 110/68 11/07/16 06:46 20 96 11/06/16 16:16 97.2 11/04/16 16:12 Room Air I&O Intake and Output 11/07/16 07:00 Intake Total 360 ml Balance 360 ml Intake Oral 360 ml # Voids 2 Labs: Laboratory Tests Test 11/07/16 07:15 11/07/16 11:56 Glucose (Fingerstick) 86 mg/dL (70-99) 125 mg/dL (70-99) H Current Medications: Meds: Current Medications Acetaminophen (Tylenol) 650 mg PRN Q6HRS PRN PO PAIN / TEMP; Start 10/29/16 at 18:00; Stop 10/31/16 at 17:37; Status DC Multi-Ingredient Ointment (Analgesic [place]) 1 [place]gar PRN QID PRN TP MUSCLE PAIN; Start 10/29/16 at 18:00; Stop 11/07/16 at 13:25; Status DC Al Hydroxide/Mg Hydroxide (Mylanta Plus Xs) 15 ml PRN AFTMEALHC PRN PO DYSPEPSIA; Start 10/29/16 at 18:00; Stop 11/07/16 at 13:25; Status DC Magnesium Hydroxide (Milk Of Magnesia) 2,400 mg PRN QHS PRN PO CONSTIPATION Last administered on 11/04/16 11:05; Start 10/29/16 at 18:00; Stop 11/07/16 at 13 :25; Status DC Acetaminophen (Tylenol) 650 mg PRN Q6HRS PRN PO PAIN; Start 10/29/16 at 18:15; Stop 10/29/16 at 18:21; Status DC Amiodarone HCl (Cordarone) 200 mg DAILY PO Last administered on 11/07/16 08:56 ; Start 10/30/16 at 09:00; Stop 11/07/16 at 13:25; Status DC Bisacodyl (Dulcolax Supp) 10 mg PRN DAILY PRN RC CONSTIPATION Last administered on 11/06/16 14:54; Start 10/29/16 at 18:15; Stop 11/07/16 at 13:25; Status DC Divalproex Sodium (Depakote Sprinkles) 125 mg TID PO Last administered on 14:01; Start 10/29/16 at 21:00; Stop 10/30/16 at 18:06; Status DC Docusate Sodium (Colace) 200 mg QHS PO Last administered on 11/06/16 19:36; Start 10/29/16 at 21:00; Stop 11/07/16 at 13:25; Status DC Furosemide (Lasix) 40 mg DAILY PO Last administered on 11/07/16 08:56; Start 10/30/16 at 09:00; Stop 11/07/16 at 13:25; Status DC Levothyroxine Sodium (Synthroid) 88 mcg DAILYAC PO Last administered on 09:54; Start 10/30/16 at 07:30; Stop 11/03/16 at 10:11; Status DC Olanzapine (ZyPREXA ZYDIS) 2.5 mg PRN Q6HRS PRN PO ANXIETY / AGITATION Last administered on 11/04/16 06:29; Start 10/29/16 at 18:15; Stop 11/07/16 at 13:25; Status DC Olanzapine (ZyPREXA ZYDIS) 5 mg TID PO Last administered on 11/04/16 10:59; Start 10/29/16 at 21:00; Stop 11/04/16 at 15:24; Status DC Quetiapine Fumarate (SEROquel) 12.5 mg HS PO Last administered on 11/06/16 19: 37; Start 10/29/16 at 21:00; Stop 11/07/16 at 13:25; Status DC Trazodone HCl (Desyrel) 50 mg QHS PO Last administered on 11/02/16 19:42; Start 10/29/16 at 21:00; Stop 11/03/16 at 08:54; Status DC Atorvastatin Calcium (Lipitor) 40 mg QHS PO Last administered on 11/06/16 19:37 ; Start 10/29/16 at 21:00; Stop 11/07/16 at 13:25; Status DC Escitalopram Oxalate (Lexapro) 15 mg DAILY PO Last administered on 11/04/16 10: 59; Start 10/30/16 at 09:00; Stop 11/04/16 at 17:57; Status DC Pantoprazole Sodium (Protonix) 40 mg DAILYAC PO Last administered on 11/07/16 08:56; Start 10/30/16 at 07:30; Stop 11/07/16 at 13:25; Status DC Guaifenesin (Mucinex Er) 1,200 mg PRN Q12HR PRN PO CHEST CONGESTION; Start 10/29 at 21:00; Stop 11/07/16 at 13:25; Status DC Non-Formulary Medication 2,400 mg PRN QHS PRN PO CONSTIPATION; Start 10/29/16 at 18:15; Stop 10/29/16 at 18:22; Status DC Memantine (Namenda) 10 mg BID PO Last administered on 11/07/16 08:56; Start at 09:00; Stop 11/07/16 at 13:25; Status DC Divalproex Sodium (Depakote Sprinkles) 250 mg BID92 PO Last administered on 10/31 13:08; Start 10/31/16 at 09:00; Stop 11/01/16 at 18:26; Status DC Insulin Detemir (Levemir) 6 units QHS SQ Last administered on 11/06/16 19:39; Start 10/30/16 at 21:00; Stop 11/07/16 at 13:25; Status DC Insulin Aspart (NovoLOG) 0-5 UNITS TIDBFRMEAL SQ Last administered on 10/31/16 16:58; Start 10/31/16 at 07:30; Stop 11/07/16 at 13:25; Status DC Dextrose 12.5 gm PRN Q15MIN PRN IV SEE COMMENTS; Start 10/30/16 at 19:15; Stop 11/07/16 at 13:25; Status DC Acetaminophen (Tylenol) 650 mg PRN Q6HRS PRN PO PAIN / TEMP Last administered on 11/02/16 16:25; Start 10/31/16 at 17:37; Stop 11/07/16 at 13:25; Status DC Buspirone HCl (Buspar) 5 mg BID92 PO Last administered on 11/07/16 12:44; Start 11/02/16 at 09:00; Stop 11/07/16 at 13:25; Status DC Trazodone HCl (Desyrel) 50 mg QHS PO Last administered on 11/06/16 19:36; Start 11/03/16 at 21:00; Stop 11/07/16 at 13:25; Status DC Levothyroxine Sodium (Synthroid) 88 mcg DAILY06 PO ; Start 11/04/16 at 06:00; Stop 11/04/16 at 06:00; Status DC Levothyroxine Sodium (Synthroid) 100 mcg DAILY06 PO Last administered on 05:50; Start 11/04/16 at 06:00; Stop 11/07/16 at 13:25; Status DC Olanzapine (ZyPREXA ZYDIS) 5 mg BID PO Last administered on 11/06/16 19:38; Start 11/04/16 at 21:00; Stop 11/06/16 at 21:01; Status DC Olanzapine (ZyPREXA ZYDIS) 5 mg DAILY PO Last administered on 11/07/16 08:57; Start 11/07/16 at 09:00; Stop 11/07/16 at 13:25; Status DC Senna/Docusate Sodium (Senna Plus) 3 tab 1X ONCE PO Last administered on 17:23; Start 11/04/16 at 17:20; Stop 11/04/16 at 17:21; Status DC Bupropion HCl (Wellbutrin) 75 mg DAILY PO Last administered on 11/06/16 11:57; Start 11/05/16 at 09:00; Stop 11/06/16 at 21:01; Status DC Bupropion HCl (Wellbutrin) 75 mg BID@0900,1200 PO ; Start 11/05/16 at 09:00; Stop 11/05/16 at 09:00; Status DC Bupropion HCl (Wellbutrin) 75 mg BID@0900,1200 PO Last administered on 12:44; Start 11/07/16 at 09:00; Stop 11/07/16 at 13:25; Status DC Mirtazapine (Remeron) 7.5 mg QHS PO Last administered on 11/06/16 19:36; Start 11/05/16 at 21:00; Stop 11/07/16 at 13:25; Status DC Active Scripts Active Reported Buspirone Hcl 5 Mg Tablet 5 Mg PO BID92 Wellbutrin Sr (Bupropion Hcl) 150 Mg Tablet.er 75 Mg PO BID AT 0900, 1200 Pantoprazole Sodium 40 Mg Tablet.dr 40 Mg PO DAILYAC Mirtazapine 15 Mg Tablet 7.5 Mg PO QHS Analgesic [place] (Methyl Salicylate/Menthol) 28 Gm Oint...g. 1 [place] TP PRN QID PRN Mag-Al Plus Xs Suspension (Mag Hydrox/Al Hydrox/Simeth) 30 Ml Oral.susp 15 Ml PO PRN AFTMEALHC PRN Levothyroxine Sodium 100 Mcg Tablet 100 Mcg PO DAILY06 Levemir (Insulin Detemir) 100 Unit/1 Ml Vial 6 Units SQ QHS Novolog Flexpen (Insulin Aspart) 100 Unit/1 Ml Insuln.pen 0-5 Units SQ TIDBFRMEAL Zyprexa Zydis (Olanzapine) 5 Mg Tab.rapdis 5 Mg PO DAILY Bisacodyl 10 Mg Supp.rect 10 Mg RC PRN DAILY PRN Mucinex (Guaifenesin) 1,200 Mg Tbmp.12hr 1,200 Mg PO PRN Q12HR PRN Docusate Sodium 100 Mg Capsule 200 Mg PO QHS Zyprexa Zydis (Olanzapine) 5 Mg Tab.rapdis 2.5 Mg PO PRN Q6HRS PRN Quetiapine Fumarate 25 Mg Tablet 12.5 Mg PO HS Milk Of Magnesia (Magnesium Hydroxide) 2,400 Mg/10 Ml Oral.susp 2,400 Mg PO PRN QHS PRN Tylenol (Acetaminophen) 325 Mg Tablet 650 Mg PO PRN Q6HRS PRN Trazodone Hcl 100 Mg Tablet 50 Mg PO QHS Atorvastatin Calcium 40 Mg Tablet 40 Mg PO QHS Lasix (Furosemide) 20 Mg Tablet 20 Mg PO DAILY Amiodarone Hcl 200 Mg Tablet 200 Mg PO DAILY Namenda Xr (Memantine Hcl) 28 Mg Cap.spr.24 28 Mg PO DAILY Diagnosis: Problems: (1) Dementia, vascular, with depression (2) Dementia, vascular, with delusions (3) Dementia in Alzheimer's disease with depression (4) Dementia in Alzheimer's disease with delusions (5) Impulse control disorder (6) Anxiety disorder (7) Dementia with behavioral disturbance CAROLA GUILLEN MD Nov 07, 2016 21:57
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
--- NOTE | 2016-11-07 23:19 | PN ---
DATE: 11/06/2016 PSYCHIATRIC PROGRESS NOTE This is a late entry covers the elements not covered in my initial note of 11/06/2016. SUBJECTIVE: I met with the patient in the evening of 11/06/2016. Oral intake is poor, not very interactive, remains confused, in a Broda chair. REVIEW OF SYSTEMS: No CV, , eye, ENT or pulmonary system symptoms on review. Reliability poor. MENTAL STATUS EXAM: Oriented to himself. Insight, judgment, recent and remote memory, attention, concentration, fund of knowledge poor consistent with his diagnosis mentioned in my initial note. PLAN: Continue psychotropics mentioned in my initial note. Adjust further as clinically indicated. MAN Michelle GUILLEN MD DR: OTF/shad JOB#: [id number] / [id number]
--- NOTE | 2016-11-09 00:36 | PN ---
DATE: PSYCHIATRIC PROGRESS NOTE This is a late entry for 11/07/2016, covers elements not covered in my initial note of 11/07/2016. INCOMPLETE DICTATION MAN Michelle GUILLEN MD DR: Marissa JOB#: [id number] / [id number]
--- NOTE | 2016-11-12 02:00 | DS ---
DATE OF DISCHARGE: 11/07/2016 ADDENDUM On reviewing the discharge medications of the patient, it appears that at the time of discharge, the patient was on Zyprexa 5 mg a day and Seroquel 12.5 mg p.o. at bedtime. These were 2 atypical antipsychotics. Since it is best to avoid using 2 atypical antipsychotics, I would recommend that once the patient is adjusted to his new facility on hospice care, Zyprexa may be reduced to 2.5 mg daily starting in 3 weeks, after that the Zyprexa will schedule can be totally discontinued. He will then remain on 1 atypical antipsychotic, Seroquel 12.5 mg daily at night. This addendum clarifies simplification in tapering off antipsychotics to avoid using 2 atypical antipsychotics in combination. CAROLA GUILLEN MD DR: OTF/shad JOB#: [id number] / [id number]
== END 2016-11-07 13:10 | disposition home or self-care (01) | DRG 884 ==
LOC: ER 13:31 → GEROPSY 15:30
PROVIDERS: ADMIT Psychiatry & Neurology Psychiatry; ATTEND Psychiatry & Neurology Psychiatry
DX: F01.51 Vascular dementia, unspecified severity, with behavioral disturbance (principal); G30.9 Alzheimer's disease, unspecified; E03.9 Hypothyroidism, unspecified; E11.9 Type 2 diabetes mellitus without complications; E78.5 Hyperlipidemia, unspecified; F02.80 Dementia in other diseases classified elsewhere, unspecified severity, without behavioral disturbance, psychotic disturbance, mood disturbance, and anxiety; F32.9 Major depressive disorder, single episode, unspecified; F41.9 Anxiety disorder, unspecified; F63.9 Impulse disorder, unspecified; I11.0 Hypertensive heart disease with heart failure; I48.91 Unspecified atrial fibrillation; I49.5 Sick sinus syndrome; I50.9 Heart failure, unspecified; N28.9 Disorder of kidney and ureter, unspecified; Z51.5 Encounter for palliative care; F22 Delusional disorders; E66.9 Obesity, unspecified; K59.00 Constipation, unspecified; Z66 Do not resuscitate; Z79.899 Other long term (current) drug therapy; Z91.14 Patient's other noncompliance with medication regimen; Z95.0 Presence of cardiac pacemaker; Z68.27 Body mass index [BMI] 27.0-27.9, adult
CPT/HCPCS: 36415; 74000; 80053; 80061; 80164; 81001; 82306; 82607; 82947; 83036; 83540; 83550; 83735; 84436; 84439; 84443; 84480; 84481; 85027; 93005; J1815; 99285-25